=== PATIENT | female | born 1940 | race Caucasian/White ===

== ENCOUNTER 2016-10-24 08:21 | Day surgery (SDC) | payer MEDICARE, BC ==
[2016-10-19 15:36] VITALS: BMI 21.4
[~2016-10-24 08:21] MED LIST: LACTATED RINGERS 1,000 ML IV SCH; LIDOCAINE 1% 20 ML VIAL (10MG/ML) FOR IV START INTRADERMA PRN
[2016-10-24 08:53] VITALS: RESP 16; TEMP 97.8
[2016-10-24] MEDS ORDERED: LIDOCAINE 1% INJ 10MG/ML (20 ML MDV) ONE (09:55)
[2016-10-24] MEDS ORDERED: PROPOFOL 10 MG/ML 20 ML VIAL IV ONE (09:55)
--- NOTE | 2016-10-24 10:10 | P.GSHP ---
History of Present Illness H&P Date: 10/24/16 Chief Complaint: Screening colonoscopy This is a 76-year-old female referred from [facility] first part history. Patient rents today for screening colonoscopy. Her last colonoscopy was 10 years ago. She has history of diverticulitis. - Constitutional Constitutional: Reports as per HPI Past Medical History Past Medical History: COPD, CVA/TIA, GERD/Reflux, Hyperlipidemia, Hypertension, Pneumonia, Thyroid Disorder Additional Past Medical History / Comment(s): TIA 2013- no effects, hx pneumonia , diverticulitis, arthritis, History of Any Multi-Drug Resistant Organisms: None Reported Past Surgical History: Breast Surgery, Orthopedic Surgery Additional Past Surgical History / Comment(s): rt breast lumpectomy, bunionectomy left foot, luis cataracts Past Anesthesia/Blood Transfusion Reactions: No Reported Reaction Past Psychological History: No Psychological Hx Reported Smoking Status: Current every day smoker Past Alcohol Use History: Rare Additional Past Alcohol Use History / Comment(s): smokes 1/2 PPD, has smoked for 40 yrs Past Drug Use History: None Reported - Past Family History Mother Family Medical History: No Reported History Medications and Allergies Home Medications Medication Instructions Recorded Confirmed Type ALPRAZolam [Xanax] 0.5 mg PO TID PRN 10/19/16 10/24/16 History Aspirin [Adult Low Dose Aspirin EC] 81 mg PO DAILY 10/19/16 10/24/16 History Citracal Tab 1 tab PO DAILY 10/19/16 10/24/16 History Ipratropium-Albuterol Nebulize 0 ml INHALATION QID PRN 10/19/16 10/24/16 History [Duoneb 0.5 mg-3 mg/3 ml Soln] Levothyroxine Sodium [Synthroid] 88 mcg PO DAILY 10/19/16 10/24/16 History Mometasone/Formoterol [Dulera 100 2 puff INHALATION BID 10/19/16 10/24/16 History Mcg/5 Mcg Inhaler] Multivitamins, Thera [Multivitamin] 1 tab PO DAILY 10/19/16 10/24/16 History Ramipril 10 mg PO DAILY 10/19/16 10/24/16 History Rosuvastatin [Crestor] 20 mg PO HS 10/19/16 10/24/16 History Allergies Allergy/AdvReac Type Severity Reaction Status Date / Time rofecoxib [From Vioxx] Allergy flu like Verified 10/19/16 15:18 symptoms and abdominal pain tramadol [From Ultram] Allergy flu like Verified 10/19/16 15:18 symptoms Surgical - Exam Vital Signs Temp Pulse Resp BP Pulse Ox 97.8 F 69 16 141/75 96 10/24/16 08:34 10/24/16 08:34 10/24/16 08:34 10/24/16 08:34 10/24/16 08:34 - General well developed, no distress - Eyes PERRL - ENT normal pinna - Neck no masses - Respiratory normal expansion - Cardiovascular Rhythm: regular - Abdomen Abdomen: soft, non tender Assessment and Plan Plan: We'll perform screening colonoscopy.
--- NOTE | 2016-10-24 10:21 | P.OP ---
Date of Procedure: 10/24/16 Preoperative Diagnosis: Screening colonoscopy Postoperative Diagnosis: Severe diverticulosis of sigmoid colon Procedure(s) Performed: Colonoscopy Anesthesia: MAC Surgeon: Andreas Hurtado Pathology: none sent Condition: stable Disposition: PACU Description of Procedure: The patient's placed on the endoscopy table in the lateral position. She received IV sedation. The digital rectal exam was performed which revealed no abnormalities. The flexible colonoscope was then placed patient anus passed throughout the entire colon. The ileocecal valve was visualized. The cecum, ascending and transverse colon appeared normal. In the descending colon just few scattered diverticula. Sigmoid colon there was extensive diverticular changes without evidence of diverticulitis. The scope was then brought back the rectum and this appeared normal. Scope was withdrawn for patient.
[2016-10-24 10:43] VITALS: BP 126/77; PULSE 74
== END 2016-10-24 11:08 | disposition home or self-care (01) ==
LOC: ORWHC2ENDO 08:21
PROVIDERS: ATTEND Surgery
DX: Z12.11 Encounter for screening for malignant neoplasm of colon (principal); K57.30 Diverticulosis of large intestine without perforation or abscess without bleeding; Z87.19 Personal history of other diseases of the digestive system; J44.9 Chronic obstructive pulmonary disease, unspecified; K21.9 Gastro-esophageal reflux disease without esophagitis; E78.5 Hyperlipidemia, unspecified; I10 Essential (primary) hypertension; E07.9 Disorder of thyroid, unspecified; M19.90 Unspecified osteoarthritis, unspecified site; F17.200 Nicotine dependence, unspecified, uncomplicated; Z79.82 Long term (current) use of aspirin; Z79.899 Other long term (current) drug therapy; Z88.8 Allergy status to other drugs, medicaments and biological substances; Z86.73 Personal history of transient ischemic attack (TIA), and cerebral infarction without residual deficits
CPT/HCPCS: J2001; J2704; G0121; 99153

== ENCOUNTER 2020-01-12 08:27 | Inpatient (IN) | payer MEDICARE, BC ==
[2020-01-12] MEDS ORDERED: SODIUM CHLORIDE 0.9% 1,000 ML IV STA (08:31)
[2020-01-12] MEDS ORDERED: IPRATROPIUM-ALBUTEROL 3 ML NEB INHALATION STA ×2 (08:31→09:09)
--- NOTE | 2020-01-12 08:42 | ED ---
SOB HPI - General Stated Complaint: KATHRYN Time Seen by Provider: 01/12/20 08:27 Source: patient, EMS, RN notes reviewed, old records reviewed - History of Present Illness Initial Comments: This is a 79-year-old female history of COPD hypertension and atrial fibrillation who presents with complaints of acid shortness of breath which started yesterday. He progressively worse not improving her home medication. She was brought in by EMS she was given steroids no nebulizer per current protocols. She did not take her medication this more she is found have a blood pressure 220/120 heart rate approximately 130s A. fib RVR. No fevers chills nausea vomiting sweats overt cough he is been self 14 for approximately 2 weeks. MD Complaint: shortness of breath - Related Data Home Medications Medication Instructions Recorded Confirmed ALPRAZolam [Xanax] 0.5 mg PO TID PRN 10/19/16 10/24/16 Aspirin [Adult Low Dose Aspirin EC] 81 mg PO DAILY 10/19/16 10/24/16 Citracal Tab 1 tab PO DAILY 10/19/16 10/24/16 Ipratropium-Albuterol Nebulize 0 ml INHALATION QID PRN 10/19/16 10/24/16 [Duoneb 0.5 mg-3 mg/3 ml Soln] Levothyroxine Sodium [Synthroid] 88 mcg PO DAILY 10/19/16 10/24/16 Mometasone/Formoterol [Dulera 100 2 puff INHALATION BID 10/19/16 10/24/16 Mcg/5 Mcg Inhaler] Multivitamins, Thera [Multivitamin] 1 tab PO DAILY 10/19/16 10/24/16 Ramipril 10 mg PO DAILY 10/19/16 10/24/16 Rosuvastatin [Crestor] 20 mg PO HS 10/19/16 10/24/16 Allergies Allergy/AdvReac Type Severity Reaction Status Date / Time rofecoxib [From Vioxx] Allergy flu like Verified 10/19/16 15:18 symptoms and abdominal pain tramadol [From Ultram] Allergy flu like Verified 10/19/16 15:18 symptoms Review of Systems ROS Statement: Those systems with pertinent positive or pertinent negative responses have been documented in the HPI. ROS Other: All systems not noted in ROS Statement are negative. Past Medical History Past Medical History: COPD, CVA/TIA, GERD/Reflux, Hyperlipidemia, Hypertension, Pneumonia, Thyroid Disorder Additional Past Medical History / Comment(s): TIA 2013- no effects, hx pneumonia, diverticulitis, arthritis, History of Any Multi-Drug Resistant Organisms: None Reported Past Surgical History: Breast Surgery, Orthopedic Surgery Additional Past Surgical History / Comment(s): rt breast lumpectomy, bunionectomy left foot, luis cataracts Past Anesthesia/Blood Transfusion Reactions: No Reported Reaction Past Psychological History: No Psychological Hx Reported Smoking Status: Current every day smoker Past Alcohol Use History: Rare Additional Past Alcohol Use History / Comment(s): smokes 1/2 PPD, has smoked for 40 yrs Past Drug Use History: None Reported - Past Family History Mother Family Medical History: No Reported History General Exam - General Exam Comments Initial Comments: This is a well-developed well-nourished awake alert oriented 3 female who is demonstrating respiratory distress with audible wheezing General appearance: alert, anxious, in distress Head exam: Present: atraumatic, normocephalic, normal inspection Eye exam: Present: normal appearance, PERRL, EOMI. Absent: scleral icterus, conjunctival injection, periorbital swelling ENT exam: Present: mucous membranes dry Neck exam: Present: normal inspection, full ROM, other (No stridor JVD or bruits). Absent: tenderness, meningismus, lymphadenopathy Respiratory exam: Present: wheezes, accessory muscle use, decreased breath sounds. Absent: respiratory distress, rales, rhonchi, stridor Cardiovascular Exam: Present: tachycardia, irregular rhythm. Absent: systolic murmur, diastolic murmur, rubs, gallop, clicks GI/Abdominal exam: Present: soft, normal bowel sounds. Absent: distended, tenderness, guarding, rebound, rigid Extremities exam: Present: normal inspection, full ROM, normal capillary refill. Absent: tenderness, pedal edema, joint swelling, calf tenderness Back exam: Present: normal inspection Neurological exam: Present: alert, oriented X3, CN II-XII intact Psychiatric exam: Present: normal affect, anxious Skin exam: Present: warm, dry, intact, normal color. Absent: rash Course Vital Signs 01/12/20 01/12/20 01/12/20 08:59 09:02 09:05 Temperature 97.6 F Pulse Rate 138 H 134 H 134 H Respiratory 24 24 Rate Blood Pressure 196/130 212/141 O2 Sat by Pulse 98 96 Oximetry 01/12/20 01/12/20 01/12/20 09:10 09:11 09:19 Temperature Pulse Rate 132 H 132 H 126 H Respiratory Rate Blood Pressure O2 Sat by Pulse Oximetry 01/12/20 10:13 Temperature Pulse Rate 108 H Respiratory 24 Rate Blood Pressure 138/100 O2 Sat by Pulse 96 Oximetry - Reevaluation(s) Reevaluation #1: 01/12/20 10:07 After 2 [id number] nebulizers the patient felt somewhat improved her heart rate continues to be elevated. Patient be started on Cardizem drip due to the A. fib RVR. Medical Decision Making - Medical Decision Making I did discuss findings with the patient as well as with Dr. Sears. Patient will be admitted for evaluation of COPD exacerbation as well as A. fib RVR. Patient is improving with respect to her breathing. - Lab Data Result diagrams: 01/12/20 08:45 01/12/20 08:45 Lab Results 01/12/20 01/12/20 01/12/20 Range/Units 08:45 08:45 08:45 WBC 11.0 H (3.8-10.6) k/uL RBC 4.34 (3.80-5.40) m/uL Hgb 14.1 (11.4-16.0) gm/dL Hct 43.3 (34.0-46.0) % MCV 99.8 (80.0-100.0) fL MCH 32.4 (25.0-35.0) pg MCHC 32.4 (31.0-37.0) g/dL RDW 13.1 (11.5-15.5) % Plt Count 317 (150-450) k/uL Neutrophils % 60 % Lymphocytes % 23 % Monocytes % 5 % Eosinophils % 9 % Basophils % 1 % Neutrophils # 6.6 (1.3-7.7) k/uL Lymphocytes # 2.5 (1.0-4.8) k/uL Monocytes # 0.5 (0-1.0) k/uL Eosinophils # 1.0 H (0-0.7) k/uL Basophils # 0.1 (0-0.2) k/uL PT (9.0-12.0) sec INR (<1.2) APTT (22.0-30.0) sec Sodium 140 (137-145) mmol/L Potassium 4.8 (3.5-5.1) mmol/L Chloride 106 (98-107) mmol/L Carbon Dioxide 25 (22-30) mmol/L Anion Gap 9 mmol/L BUN 21 H (7-17) mg/dL Creatinine 0.92 (0.52-1.04) mg/dL Est GFR (CKD-EPI)AfAm 69 (>60 ml/min/1.73 sqM) Est GFR (CKD-EPI)NonAf 60 (>60 ml/min/1.73 sqM) Glucose 169 H (74-99) mg/dL Plasma Lactic Acid Waldo 0.8 (0.7-2.0) mmol/L Calcium 9.4 (8.4-10.2) mg/dL Magnesium 2.0 (1.6-2.3) mg/dL Total Bilirubin 0.4 (0.2-1.3) mg/dL AST 26 (14-36) U/L ALT 20 (4-34) U/L Alkaline Phosphatase 117 (38-126) U/L Creatine Kinase 93 (30-135) U/L Troponin I (0.000-0.034) ng/mL NT-Pro-B Natriuret Pep pg/mL Total Protein 8.3 H (6.3-8.2) g/dL Albumin 4.7 (3.5-5.0) g/dL 01/12/20 01/12/20 01/12/20 Range/Units 08:45 08:45 09:30 WBC (3.8-10.6) k/uL RBC (3.80-5.40) m/uL Hgb (11.4-16.0) gm/dL Hct (34.0-46.0) % MCV (80.0-100.0) fL MCH (25.0-35.0) pg MCHC (31.0-37.0) g/dL RDW (11.5-15.5) % Plt Count (150-450) k/uL Neutrophils % % Lymphocytes % % Monocytes % % Eosinophils % % Basophils % % Neutrophils # (1.3-7.7) k/uL Lymphocytes # (1.0-4.8) k/uL Monocytes # (0-1.0) k/uL Eosinophils # (0-0.7) k/uL Basophils # (0-0.2) k/uL PT 9.4 (9.0-12.0) sec INR 0.9 (<1.2) APTT 19.9 L (22.0-30.0) sec Sodium (137-145) mmol/L Potassium (3.5-5.1) mmol/L Chloride (98-107) mmol/L Carbon Dioxide (22-30) mmol/L Anion Gap mmol/L BUN (7-17) mg/dL Creatinine (0.52-1.04) mg/dL Est GFR (CKD-EPI)AfAm (>60 ml/min/1.73 sqM) Est GFR (CKD-EPI)NonAf (>60 ml/min/1.73 sqM) Glucose (74-99) mg/dL Plasma Lactic Acid Waldo (0.7-2.0) mmol/L Calcium (8.4-10.2) mg/dL Magnesium (1.6-2.3) mg/dL Total Bilirubin (0.2-1.3) mg/dL AST (14-36) U/L ALT (4-34) U/L Alkaline Phosphatase (38-126) U/L Creatine Kinase (30-135) U/L Troponin I <0.012 (0.000-0.034) ng/mL NT-Pro-B Natriuret Pep 202 pg/mL Total Protein (6.3-8.2) g/dL Albumin (3.5-5.0) g/dL - EKG Data -: EKG Interpreted by Me EKG Comments: A. fib with RVR and rate 137. Interval 118 QRS duration 6 QT/QTC 3:30/498 indeterminate axis pulmonary disease pattern nonspecific ST-T wave configuration - Radiology Data Radiology results: report reviewed (I did on the imaging and report the imaging is consistent with COPD.), image reviewed Critical Care Time Critical Care Time: Yes Critical Care Time: Critical care time: 39 minutes of critical care time which includes initial presentation with history physical discussed with paramedics on arrival multiple reevaluation the patient to responsive therapy review of old charting was available discussed with the admitting physician admission orders and documentation of the above. Disposition Clinical Impression: Acute exacerbation of chronic obstructive pulmonary disease, Acute respiratory distress syndrome in adult, Rapid atrial fibrillation Disposition: ADMITTED IP TO THIS HOSP Condition: Fair Referrals: Cari Pisano DO [Primary Care Provider] - 1-2 days
[2020-01-12 09:00] LABS: Basophils # (A) 0.1 k/uL (0-0.2); Basophils % (A) 1 %; Eosinophils % (A) 9 %; HCT 43.3 % (34.0-46.0); HGB 14.1 gm/dL (11.4-16.0); Lymphocytes # (A) 2.5 k/uL (1.0-4.8); Lymphocytes % (A) 23 %; MCH 32.4 pg (25.0-35.0); MCHC 32.4 g/dL (31.0-37.0); MCV 99.8 fL (80.0-100.0); Mean Platelet Volume 7.2; Monocytes # (A) 0.5 k/uL (0-1.0); Monocytes % (A) 5 %; Neutrophils # (A) 6.6 k/uL (1.3-7.7); Neutrophils % (A) 60 %; Platelet Count 317 k/uL (150-450); RBC 4.34 m/uL (3.80-5.40); RDW 13.1 % (11.5-15.5)
[2020-01-12 09:10] LABS: Albumin 4.7 g/dL (3.5-5.0); Calcium 9.4 mg/dL (8.4-10.2); Potassium 4.8 mmol/L (3.5-5.1); Total Bilirubin 0.4 mg/dL (0.2-1.3); Total Protein 8.3 g/dL (6.3-8.2)
[2020-01-12] MEDS ORDERED: MAGNESIUM SULFATE-D5W PMX 1 GM in DEXTROSE/WATER 1 100ML.BAG IVPB ONE (09:10)
--- NOTE | 2020-01-12 09:12 | XR ---
EXAMINATION TYPE: XR chest 1V DATE OF EXAM: 01/12/2020 COMPARISON: NONE HISTORY: 79-year-old female from September, difficulty breathing TECHNIQUE: Single frontal view of the chest is obtained. FINDINGS: Heart normal size. Tortuous/ectatic thoracic aorta. Mild diffuse interstitial prominence. Hazy left basilar opacity likely relating to overlying soft tissue. Hyperinflation. No lizeth consolid ation or pleural effusion. IMPRESSION: COPD and chronic appearing changes. No definite acute process.
[2020-01-12] MEDS ORDERED: DILTIAZEM DRIP BOLUS FROM BAG 1 MG SOLN IV ONE (09:51)
[2020-01-12] MEDS ORDERED: DILTIAZEM 125 MG in SODIUM CHLORIDE 0.9% 100 ML IV SCH (10:00)
[2020-01-12 10:15] LABS: INR 0.9 (<1.2); Prothrombin Time 9.4 sec (9.0-12.0)
[2020-01-12 10:21] LABS: Partial Thromboplastin Time 19.9 sec (22.0-30.0)
[2020-01-12] MEDS ORDERED: HEPARIN SODIUM,PORCINE 5,000 UNIT/ML 1 ML VIAL IV ONE (11:02)
[2020-01-12] MEDS ORDERED: HEPARIN SODIUM,PORCINE 5,000 UNIT/ML 1 ML VIAL IV PRN (11:02)
[2020-01-12] MEDS ORDERED: HEPARIN SOD,PORK IN 0.45% NACL 25,000 UNIT in 0.45% NACL 1 250ML.BAG IV SCH (11:15)
[2020-01-12] MEDS: ALBUTEROL INHALER 60 PUFF/8 GM INHALER (BULK) INHALATION SCH ×3 (11:51→19:21)
[2020-01-12] MEDS ORDERED: IPRATROPIUM-ALBUTEROL 3 ML NEB INHALATION SCH (12:00)
[2020-01-12] MEDS: ALPRAZolam 0.5 MG TAB PO PRN (12:02)
[2020-01-12] MEDS: methylPREDNISolone SOD SUCCI 125 MG/2 ML VIAL IV SCH ×3 (12:03→22:59)
[2020-01-12 12:14] LABS: Glucose,Whole Blood 130 mg/dL (75-99)
--- NOTE | 2020-01-12 13:58 | P.CRDCN ---
History of Present Illness Consult date: 01/12/20 Requesting physician: Senia Alvarez Consult reason: shortness of breath Chief complaint: Shortness of breath History of present illness: This is a 79-year-old female with history of COPD, nicotine dependence, prior TIA, anxiety, who presents to the hospital with symptoms of greater than one week progression of shortness of breath. Patient states that she noticed her shortness of breath about a week ago and since then every days been progressively worse to the point where she could not breathe at all. She also states that she feels as though she's been running some mild fevers at home and has a wheezy cough. Initially a cardiology consultation was requested for atrial fibrillation, but on review of the patient's EKG, she came in with a sinus tachycardia, and continues to be in sinus tachycardia at the time of my examination. She is currently on IV Cardizem at 5. Chest x-ray showed COPD with chronic appearing changes. Blood pressure on arrival to the hospital 196/1 30 with a heart rate in the 120 to 1:30 range, O2 saturation 98% on blow-by device. Patient is currently afebrile. Laboratory data was reviewed, white blood cell count 11.0, hemoglobin 14.1, platelet count 317. Sodium 140, potassium 4.8, BUN 21 and creatinine 0.9, troponin 0.012. At the time of my examination, patient was quite short of breath, had to sit straight up in bed to breathe. Continues to have an intermittent tight wheezy cough. Past Medical History Past Medical History: Atrial Fibrillation, COPD, CVA/TIA, GERD/Reflux, Hyperlipidemia, Hypertension, Osteoarthritis (OA), Pneumonia, Thyroid Disorder Additional Past Medical History / Comment(s): TIA in 2013, diverticular disease, hypothyroid, arthritis in multiple joints, sinus problems History of Any Multi-Drug Resistant Organisms: None Reported Past Surgical History: Breast Surgery, Orthopedic Surgery Additional Past Surgical History / Comment(s): Benign rt breast lumpectomy, bunionectomy left foot, colonoscopies, luis cataracts Past Anesthesia/Blood Transfusion Reactions: Postoperative Nausea & Vomiting (PONV) Smoking Status: Former smoker - Past Family History Mother Family Medical History: Diabetes Mellitus Additional Family Medical History / Comment(s): Mother had heart problems. Father Family Medical History: No Reported History Additional Family Medical History / Comment(s): Father was healthy and lived to be 98yrs old. Medications and Allergies Home Medications Medication Instructions Recorded Confirmed Type ALPRAZolam [Xanax] 0.5 mg PO TID PRN 10/19/16 01/12/20 History Aspirin [Adult Low Dose Aspirin EC] 81 mg PO DAILY 10/19/16 01/12/20 History Ipratropium-Albuterol Nebulize 3 ml INHALATION RT-QID PRN 10/19/16 01/12/20 History [Duoneb 0.5 mg-3 mg/3 ml Soln] Levothyroxine Sodium [Synthroid] 88 mcg PO DAILY 10/19/16 01/12/20 History Multivitamins, Thera [Multivitamin] 1 tab PO DAILY 10/19/16 01/12/20 History Ramipril 10 mg PO DAILY 10/19/16 01/12/20 History Rosuvastatin [Crestor] 20 mg PO HS 10/19/16 01/12/20 History Albuterol Sulfate [Ventolin HFA] 2 puff INHALATION RT-Q4H PRN 01/12/20 01/12/20 History Biotin 5,000 mcg PO DAILY 01/12/20 01/12/20 History Citracal/Vit D 200-250 1 tab PO DAILY 01/12/20 01/12/20 History Cyclobenzaprine [Flexeril] 5 - 10 mg PO BID PRN 01/12/20 01/12/20 History Dicyclomine [Bentyl] 10 mg PO TID PRN 01/12/20 01/12/20 History Meloxicam [Mobic] 7.5 - 15 mg PO DAILY 01/12/20 01/12/20 History Allergies Allergy/AdvReac Type Severity Reaction Status Date / Time rofecoxib [From Vioxx] Allergy flu like Verified 10/19/16 15:18 symptoms and abdominal pain tramadol [From Ultram] Allergy flu like Verified 10/19/16 15:18 symptoms Physical Exam Vitals: Vital Signs Temp Pulse Resp BP Pulse Ox 01/12/20 10:52 30 H 01/12/20 10:50 115 H 18 149/77 97 01/12/20 10:30 107 H 24 138/73 98 01/12/20 10:13 108 H 24 138/100 96 01/12/20 10:00 123 H 24 98 01/12/20 09:30 144 H 27 H 170/101 97 01/12/20 09:19 126 H 01/12/20 09:11 132 H 01/12/20 09:10 132 H 01/12/20 09:05 134 H 01/12/20 09:02 134 H 24 212/141 96 01/12/20 09:00 130 H 25 H 196/130 97 01/12/20 08:59 97.6 F 138 H 24 196/130 98 01/12/20 08:33 121 H 97 Intake and Output 01/11/20 01/12/20 01/12/20 22:59 06:59 14:59 Other: Weight 70.307 kg PHYSICAL EXAMINATION: GENERAL: 79-year-old female in mild respiratory distress at the time of my examination HEENT: Head is atraumatic, normocephalic. Pupils equal, round. Sclera an icteric. Conjunctiva are clear. Mucous membranes of the mouth are moist. Neck is supple. There is no elevated jugular venous pressure. No carotid bruit is heard. HEART EXAMINATION: Heart S1, S2 tachycardic . No murmur or gallop heard. CHEST EXAMINATION: On's reveal decreased air exchange with wheezing throughout. ABDOMEN: Soft, nontender. Bowel sounds are heard. No organomegaly noted. EXTREMITIES: 2+ peripheral pulses with no evidence of peripheral edema and no calf tenderness noted. NEUROLOGIC patient is awake, alert and oriented 3 . Results 01/12/20 08:45 01/12/20 08:45 Cardiac Enzymes 01/12/20 01/12/20 Range/Units 08:45 08:45 AST 26 (14-36) U/L Troponin I <0.012 (0.000-0.034) ng/mL Coagulation 01/12/20 Range/Units 09:30 PT 9.4 (9.0-12.0) sec APTT 19.9 L (22.0-30.0) sec CBC 01/12/20 Range/Units 08:45 WBC 11.0 H (3.8-10.6) k/uL RBC 4.34 (3.80-5.40) m/uL Hgb 14.1 (11.4-16.0) gm/dL Hct 43.3 (34.0-46.0) % Plt Count 317 (150-450) k/uL Comprehensive Metabolic Panel 01/12/20 Range/Units 08:45 Sodium 140 (137-145) mmol/L Potassium 4.8 (3.5-5.1) mmol/L Chloride 106 (98-107) mmol/L Carbon Dioxide 25 (22-30) mmol/L BUN 21 H (7-17) mg/dL Creatinine 0.92 (0.52-1.04) mg/dL Glucose 169 H (74-99) mg/dL Calcium 9.4 (8.4-10.2) mg/dL AST 26 (14-36) U/L ALT 20 (4-34) U/L Alkaline Phosphatase 117 (38-126) U/L Total Protein 8.3 H (6.3-8.2) g/dL Albumin 4.7 (3.5-5.0) g/dL Current Medications Generic Name Dose Route Start Last Admin Trade Name Freq PRN Reason Stop Dose Admin Albuterol Sulfate 2 puff 01/12/20 12:00 01/12/20 11:51 Ventolin Hfa Inhaler INHALATION 2 puff RT-Q4H [facility] Administration Alprazolam 0.5 mg 01/12/20 10:29 01/12/20 12:02 Xanax PO 0.5 mg TID PRN Administration Anxiety Aspirin 81 mg 01/13/20 09:00 Aspirin PO DAILY [facility] Atorvastatin Calcium 40 mg 01/12/20 21:00 Lipitor PO HS [facility] Budesonide/Formoterol Fumarate 2 puff 01/12/20 20:00 Symbicort 80-4.5 Mcg Inhaler INHALATION RT-BID [facility] Heparin Sodium (Porcine) 0 unit 01/12/20 11:02 Heparin IV PER PROTOCOL PRN Low PTT Protocol Sodium Chloride 1,000 mls @ 130 mls/hr 01/12/20 08:31 01/12/20 08:54 Saline 0.9% IV 01/12/20 16:12 130 mls/hr .Q7H42M STA Administration Diltiazem HCl 125 mg/ Sodium 125 mls @ 5 mls/hr 01/12/20 10:00 01/12/20 10:05 Chloride IV 5 mg/hr .Q24H [facility] 5 mls/hr Administration 5 MG/HR Heparin Sodium/Sodium Chloride 250 mls @ 8.437 mls/hr 01/12/20 11:15 01/12/20 12:04 25,000 unit/ Sodium Chloride IV 12 units/kg/hr .Q24H [facility] 8.437 mls/hr Administration Protocol 12 UNITS/KG/HR Levothyroxine Sodium 88 mcg 01/13/20 06:30 Synthroid PO DAILY@0630 [facility] Lisinopril 40 mg 01/13/20 09:00 Zestril PO DAILY [facility] Methylprednisolone Sodium Succinate 60 mg 01/12/20 12:00 01/12/20 12:03 Solu-Medrol IV 60 mg Q6HR [facility] Administration Multivitamins 1 each 01/13/20 09:00 Theragran PO DAILY [facility] Tiotropium [place] 1 puff 01/13/20 08:00 Spiriva INHALATION RT-DAILY [facility] Intake and Output 01/11/20 01/12/20 01/12/20 22:59 06:59 14:59 Other: Weight 70.307 kg Patient Weight 01/13/20 06:59 Weight 70.307 kg 01/12/20 08:45 01/12/20 08:45 EKG Interpretations (text) EKG shows a sinus tachycardia Assessment and Plan Plan: Assessment and plan #1 symptoms of one week to 10 day duration of progressively worsening shortness of breath with associated mild fever and wheezy cough. Rule out possible COVID 19. Versus a possible COPD exacerbation. Initial chest x-ray did not reveal any acute findings. #2 sinus tachycardia, likely secondary to respiratory difficulty #3 COPD #4 nicotine dependence #5 prior TIA #6 anxiety Plan We will obtain an echocardiogram with Doppler study. The primary care doctor is also obtaining testing for possible Covid 19, we will obtain a pro calcitonin level. Consult pulmonary per primary doctor request. Order a d-dimer. Further recommendations to follow. DNP note has been reviewed, I agree with a documented findings and plan of care. Patient was seen and examined.
--- NOTE | 2020-01-12 15:23 | CT ---
EXAMINATION TYPE: CT angio chest DATE OF EXAM: 01/12/2020 COMPARISON: None HISTORY: Difficulty breathing. CT DLP: 258.6 mGycm CONTRAST: CT chest with contrast and 3D reconstruction with MIP imaging is performed with IV Contrast, patient injected with 63ml mL of Isovue 370. Contrast-enhanced CT of the chest was performed through the course of the pulmonary arteries with vilma g and mediastinal window settings submitted. 3D reconstruction with MIP imaging was also performed. PULMONARY ARTERIES: The pulmonary arteries and their major tributaries are patent. I do not see yulisa dence for sizable filling defect to suggest pulmonary embolic process. LUNGS: Small focal groundglass infiltrate adjacent to the right cardiac border image 93./Linear atele ctasis in the region of the lingula. Mild bronchial wall thickening identified. Mild emphysematous ch anges noted. Right apical parenchymal scarring. No pulmonary nodule or mass is detected. No pleural effusion. MEDIASTINUM: Ectasia of the thoracic aorta with atheromatous change noted. Correlate clinically . The heart is mildly enlarged. No evidence for mediastinal mass. No mediastinal lymph nodes greater bandar n 1cm. HILAR STRUCTURES: No evidence for mass. No hilar lymph nodes greater than 1 cm. UPPER ABDOMEN: No significant abnormality is seen. IMPRESSION: 1. No evidence for Pulmonary embolism at this time. 2. Linear atelectasis in the region of the lingula. Bronchial wall thickening may reflect bronchitis. Small focal groundglass infiltrate adjacent to the right cardiac border image 93.
[2020-01-12] MEDS ORDERED: Acetaminophen-Codeine 300-30mg TAB PO PRN (15:40)
[2020-01-12] MEDS: ACETAMINOPHEN TAB 325 MG TAB PO PRN (16:17)
[2020-01-12 16:55] LABS: Glucose,Whole Blood 167 mg/dL (75-99)
[2020-01-12] MEDS: INSULIN ASPART (NovoLOG) 100 UNIT/ML VIAL SQ SCH ×2 (17:10→21:41)
--- NOTE | 2020-01-12 17:26 | P.CNPUL ---
History of Present Illness Consult date: 01/12/20 Reason for consult: dyspnea, COPD Chief complaint: Shortness of breath History of present illness: 79-year-old white female patient of Dr. Smith, with past medical history of COPD, hypertension, chronic atrial fibrillation, previous history of CVA/TIA, hypothyroidism, current every day smoker, smokes half a pack a day for the past 40 years, who presented to the emergency department per EMS on 01/12/2020, for evaluation of increasing shortness of breath that started yesterday. patient did have fevers at home. She states she has been at home under stable home order since December 21. She does have family members that tested positive for Covid 19 however they have been and self-isolation and have not had any contact with the patient says before December 21. She states she called her [id number] who did test positive for Covid 19 this morning to transport her to the hospital however upon further thought she changed her mind and called the ambulance. Patient had not taken her usual medications this morning, her blood pressure on arrival was 220/120, she was in A. fib RVR with a rate of 1:30 BPM, she denies any fevers, denies any nausea vomiting, denies any diaphoresis, no chest pain. Patient was bronchospastic, dyspneic, with audible wheezing. EKG showed A. fib RVR, with nonspecific ST-T wave configuration. Chest x-ray showed COPD, chronic appearing changes, and no definite acute process. Lab work has been reviewed showing white blood cell count 11.0, 11 of 14.1, coagulation profile was within normal limits, d-dimer was not checked yet, a lecture lites are within normal limits, BUN is 21 creatinine 0.92, lactic acid is 0.8, LFTs were within normal limits, troponin was less than 0.012, proBNP was within normal limits at 202, influenza screen was negative. COVID 19 testing has been ordered in in progress, pro- calcitonin this pending, d-dimer has been ordered, cardiology has evaluated the patient, determined that patient was in sinus tachycardia, nevertheless patient was started on heparin infusion for anticoagulation. Review of Systems All systems: negative Constitutional: Denies chills, Denies fever Eyes: denies blurred vision, denies pain Ears, nose, mouth and throat: Denies headache, Denies sore throat Cardiovascular: Denies chest pain, Denies shortness of breath Respiratory: Reports dyspnea, Denies cough Gastrointestinal: Denies abdominal pain, Denies diarrhea, Denies nausea, Denies vomiting Genitourinary: Denies dysuria, Denies hematuria Musculoskeletal: Denies myalgias Integumentary: Denies pruritus, Denies rash Neurological: Denies numbness, Denies weakness Psychiatric: Denies anxiety, Denies depression Endocrine: Denies fatigue, Denies weight change Past Medical History Past Medical History: Atrial Fibrillation, COPD, CVA/TIA, GERD/Reflux, Hyperlipidemia, Hypertension, Osteoarthritis (OA), Pneumonia, Thyroid Disorder Additional Past Medical History / Comment(s): TIA in 2013, diverticular disease, hypothyroid, arthritis in multiple joints, sinus problems History of Any Multi-Drug Resistant Organisms: None Reported Past Surgical History: Breast Surgery, Orthopedic Surgery Additional Past Surgical History / Comment(s): Benign rt breast lumpectomy, bunionectomy left foot, colonoscopies, luis cataracts Past Anesthesia/Blood Transfusion Reactions: Postoperative Nausea & Vomiting (PONV) Smoking Status: Former smoker - Past Family History Mother Family Medical History: Diabetes Mellitus Additional Family Medical History / Comment(s): Mother had heart problems. Father Family Medical History: No Reported History Additional Family Medical History / Comment(s): Father was healthy and lived to be 98yrs old. Medications and Allergies Home Medications Medication Instructions Recorded Confirmed Type ALPRAZolam [Xanax] 0.5 mg PO TID PRN 10/19/16 01/12/20 History Aspirin [Adult Low Dose Aspirin EC] 81 mg PO DAILY 10/19/16 01/12/20 History Ipratropium-Albuterol Nebulize 3 ml INHALATION RT-QID PRN 10/19/16 01/12/20 History [Duoneb 0.5 mg-3 mg/3 ml Soln] Levothyroxine Sodium [Synthroid] 88 mcg PO DAILY 10/19/16 01/12/20 History Multivitamins, Thera [Multivitamin] 1 tab PO DAILY 10/19/16 01/12/20 History Ramipril 10 mg PO DAILY 10/19/16 01/12/20 History Rosuvastatin [Crestor] 20 mg PO HS 10/19/16 01/12/20 History Albuterol Sulfate [Ventolin HFA] 2 puff INHALATION RT-Q4H PRN 01/12/20 01/12/20 History Biotin 5,000 mcg PO DAILY 01/12/20 01/12/20 History Citracal/Vit D 200-250 1 tab PO DAILY 01/12/20 01/12/20 History Cyclobenzaprine [Flexeril] 5 - 10 mg PO BID PRN 01/12/20 01/12/20 History Dicyclomine [Bentyl] 10 mg PO TID PRN 01/12/20 01/12/20 History Meloxicam [Mobic] 7.5 - 15 mg PO DAILY 01/12/20 01/12/20 History Allergies Allergy/AdvReac Type Severity Reaction Status Date / Time rofecoxib [From Vioxx] Allergy flu like Verified 10/19/16 15:18 symptoms and abdominal pain tramadol [From Ultram] Allergy flu like Verified 10/19/16 15:18 symptoms Physical Exam Vitals: Vital Signs Temp Pulse Resp BP Pulse Ox 01/12/20 10:52 30 H 01/12/20 10:50 115 H 18 149/77 97 01/12/20 10:30 107 H 24 138/73 98 01/12/20 10:13 108 H 24 138/100 96 01/12/20 10:00 123 H 24 98 01/12/20 09:30 144 H 27 H 170/101 97 01/12/20 09:19 126 H 01/12/20 09:11 132 H 01/12/20 09:10 132 H 01/12/20 09:05 134 H 01/12/20 09:02 134 H 24 212/141 96 01/12/20 09:00 130 H 25 H 196/130 97 01/12/20 08:59 97.6 F 138 H 24 196/130 98 01/12/20 08:33 121 H 97 Intake and Output 01/11/20 01/12/20 01/12/20 22:59 06:59 14:59 Intake Total 237 Balance 237 Intake: Oral 237 Other: # Voids 1 Weight 70.307 kg GENERAL EXAM: Alert, very pleasant, 71-year-old white female, on 3 L of oxygen with a pulse ox of 97%, dyspneic with conversation, HEAD: Normocephalic/atraumatic. EYES: Normal reaction of pupils, equal size. Conjunctiva pink, sclera white. NOSE: Clear with pink turbinates. THROAT: No erythema or exudates. NECK: No masses, no JVD, no thyroid enlargement, no adenopathy. CHEST: No chest wall deformity. Symmetrical expansion. LUNGS: Equal air entry with diminished breath sounds bilaterally, no rhonchi, no wheezing. CVS: Regular rate and rhythm, normal S1 and S2, no gallops, no murmurs, no rubs ABDOMEN: Soft, nontender. No hepatosplenomegaly, normal bowel sounds, no guarding or rigidity. EXTREMITIES: No clubbing, no edema, no cyanosis, 2+ pulses and upper and lower extremities. MUSCULOSKELETAL: Muscle strength and tone normal. SPINE: No scoliosis or deformity SKIN: a large draining boil noted on upper back, draining purulent drainage CENTRAL NERVOUS SYSTEM: Alert and oriented -3. No focal deficits, tone is normal in all 4 extremities. PSYCHIATRIC: Alert and oriented -3. Appropriate affect. Intact judgment and insight. Results - Laboratory Findings CBC and BMP: 01/12/20 08:45 01/12/20 08:45 PT/INR, D-dimer PT 9.4 sec (9.0-12.0) 01/12/20 09:30 INR 0.9 (<1.2) 01/12/20 09:30 Abnormal lab findings: Abnormal Labs 01/12/20 01/12/20 01/12/20 08:45 08:45 09:30 WBC 11.0 H Eosinophils # 1.0 H APTT 19.9 L BUN 21 H Glucose 169 H POC Glucose (mg/dL) Total Protein 8.3 H 01/12/20 12:09 WBC Eosinophils # APTT BUN Glucose POC Glucose (mg/dL) 130 H Total Protein - Diagnostic Findings Chest x-ray: report reviewed, image reviewed Additional studies: EKG reviewed Assessment and Plan Plan: Assessment: #1. Acute hypoxic rest or a failure related to acute exacerbation of COPD, with the possibility of Covid 19 infection, patient has been tested and the results are pending at this time. Reports some fevers and cough, shortness of breath at home #2. A. fib with RVR on presentation, patient has been evaluated by cardiology, and it was determined the patient was in sinus tachycardia, currently on Cardizem drip and heparin for anticoagulation #3. Chronic obstructive pulmonary disease #4. Hypertensive urgency on presentation improved. Chest x-ray did not show any definite evidence of edema #5. Previous history of CVA/TIA #6. Anxiety #7. Chronic and ongoing nicotine dependence, smoked for 40 years half a pack a day #8. Osteoarthritis #9. Hypothyroidism #10. Diverticular disease #11. Large draining boil on upper back, and surgery will be consulted. Plan: Continue IV steroids, MDI inhalers, chest x-ray has been reviewed with no definite evidence of pneumonia or fluid overload. D-dimer has been ordered and is pending, Covid 19 testing is pending, we'll start the patient on Zithromax. a large draining boil was noted on patient's upper back, with purulent drainage, general surgery will be consulted for possibility of incision and drainage, Unasyn will be added on. Blood pressure is better controlled. CTA chest has been ordered by cardiology and is pending at this time, we'll continue to closely monitor, and follow the clinical course, further recommendations to follow maintain droplet precautions I performed a history & physical examination of the patient and discussed their management with my nurse practitioner, Chery Bell. I reviewed the nurse practitioner's note and agree with the documented findings and plan of care. Lung sounds are positive for diffuse wheezes throughout the lung stinson. The findings and the impression was discussed with the patient. I attest to the documentation by the nurse practitioner. Time with Patient: Greater than 30
[2020-01-12] MEDS: AZITHROMYCIN 500 MG TAB PO SCH (18:12)
[2020-01-12] MEDS: AMPICILLIN-SULBACTAM 3 GM in SODIUM CHLORIDE 0.9% 100 ML IVPB SCH ×2 (18:13→22:59)
[2020-01-12] MEDS: SYMBICORT 80-4.5 MCG INHALER INHALATION SCH (19:22)
[2020-01-12] MEDS: ATORVASTATIN 40 MG TAB PO SCH ×2 (20:29→20:43)
[2020-01-12 21:04] LABS: Glucose,Whole Blood 181 mg/dL (75-99)
--- NOTE | 2020-01-12 23:47 | P.HPIM ---
History of Present Illness H&P Date: 01/12/20 Chief Complaint: Shortness of breath Patient is a 79-year-old female with known history of COPD, previous history of smoking, history of TIA/CVA, hypertension, hyperlipidemia, osteoarthritis and anxiety and questionable history of atrial fibrillation currently not on any ant icoagulation at home came to ER with the complaints of shortness of breath which is getting worse since yesterday. Patient says that she's been having cough for the past 2 weeks and subjective fevers at home. Patient also did not take her medications today morning. Her blood pressure was elevated with SBP greater than 220 on admission. Patient was also tachycardic and tachypneic and also hypoxic on admission. Patient was febrile in the hospital. Denied any nausea vomiting or diarrhea or abdominal pain. No complaints of chest pain. Patient does have headache but no dizziness or lightheadedness. Denied any sick contacts or recent travel. EKG showed atrial fibrillation with rapid ventricular rate on admission and was started on Cardizem drip and heparin drip. Chest x-ray showed COPD with chronic appearing changes. Laboratory data showed pelvis 11.0, hemoglobin 14.1, platelets 317, sodium 140, potassium 4.8, BUN 21 and creatinine 0.9 and troponin 0.012 Patient was seen by cardiology. After reviewing EKG, patient was found to be in sinus tachycardia on admission. D-dimer was ordered. Review of Systems Constitutional: Objective fevers. No chills . Generalized weakness and malaise. Abdomen: Patient denied nausea vomiting and diarrhea and abdominal pain. Cardiovascular: Patient denies any chest pain . Positive short of breath no palpitations. Respiratory: Cough without sputum production and shortness of breath Neurologic: Patient denied any numbness or tingling headache. Musculoskeletal: Patient denies any complaints of joint swelling or deformity. Skin: Negative Psychiatric: Negative Endocrine: No heat or cold intolerance. No recent weight gain. Genitourinary: No dysuria or hematuria. All other 14 point ROS negative except the above Past Medical History Past Medical History: Atrial Fibrillation, COPD, CVA/TIA, GERD/Reflux, Hyperlipidemia, Hypertension, Osteoarthritis (OA), Pneumonia, Thyroid Disorder Additional Past Medical History / Comment(s): TIA in 2014, diverticular disease, hypothyroid, arthritis in multiple joints, sinus problems History of Any Multi-Drug Resistant Organisms: None Reported Past Surgical History: Breast Surgery, Orthopedic Surgery Additional Past Surgical History / Comment(s): Benign rt breast lumpectomy, bunionectomy left foot, colonoscopies, luis cataracts Past Anesthesia/Blood Transfusion Reactions: Postoperative Nausea & Vomiting (PONV) Smoking Status: Former smoker - Past Family History Mother Family Medical History: Diabetes Mellitus Additional Family Medical History / Comment(s): Mother had heart problems. Father Family Medical History: No Reported History Additional Family Medical History / Comment(s): Father was healthy and lived to be 98yrs old. Medications and Allergies Home Medications Medication Instructions Recorded Confirmed Type ALPRAZolam [Xanax] 0.5 mg PO TID PRN 10/19/16 01/12/20 History Aspirin [Adult Low Dose Aspirin EC] 81 mg PO DAILY 10/19/16 01/12/20 History Ipratropium-Albuterol Nebulize 3 ml INHALATION RT-QID PRN 10/19/16 01/12/20 History [Duoneb 0.5 mg-3 mg/3 ml Soln] Levothyroxine Sodium [Synthroid] 88 mcg PO DAILY 10/19/16 01/12/20 History Multivitamins, Thera [Multivitamin] 1 tab PO DAILY 10/19/16 01/12/20 History Ramipril 10 mg PO DAILY 10/19/16 01/12/20 History Rosuvastatin [Crestor] 20 mg PO HS 10/19/16 01/12/20 History Albuterol Sulfate [Ventolin HFA] 2 puff INHALATION RT-Q4H PRN 01/12/20 01/12/20 History Biotin 5,000 mcg PO DAILY 01/12/20 01/12/20 History Citracal/Vit D 200-250 1 tab PO DAILY 01/12/20 01/12/20 History Cyclobenzaprine [Flexeril] 5 - 10 mg PO BID PRN 01/12/20 01/12/20 History Dicyclomine [Bentyl] 10 mg PO TID PRN 01/12/20 01/12/20 History Meloxicam [Mobic] 7.5 - 15 mg PO DAILY 01/12/20 01/12/20 History Allergies Allergy/AdvReac Type Severity Reaction Status Date / Time rofecoxib [From Vioxx] Allergy flu like Verified 10/19/16 15:18 symptoms and abdominal pain tramadol [From Ultram] Allergy flu like Verified 10/19/16 15:18 symptoms Physical Exam Vitals: Vital Signs Temp Pulse Resp BP Pulse Ox 01/12/20 10:52 30 H 01/12/20 10:50 115 H 18 149/77 97 01/12/20 10:30 107 H 24 138/73 98 01/12/20 10:13 108 H 24 138/100 96 01/12/20 10:00 123 H 24 98 01/12/20 09:30 144 H 27 H 170/101 97 01/12/20 09:19 126 H 01/12/20 09:11 132 H 01/12/20 09:10 132 H 01/12/20 09:05 134 H 01/12/20 09:02 134 H 24 212/141 96 01/12/20 09:00 130 H 25 H 196/130 97 01/12/20 08:59 97.6 F 138 H 24 196/130 98 01/12/20 08:33 121 H 97 Intake and Output 01/11/20 01/12/20 01/12/20 22:59 06:59 14:59 Other: Weight 70.307 kg PHYSICAL EXAMINATION: Patient is lying in the bed comfortably, mild distress, awake alert and oriented.. HEENT: Normocephalic. Neck is supple. Pupils reactive. Nostrils clear. Oral cavity is moist. Ears reveal no drainage. Neck reveals no JVD, carotid bruits, or thyromegaly. CHEST EXAMINATION: Trachea is central. Symmetrical expansion. Bilateral diminished air entry and wheezing present. CARDIAC: Normal S1, S2 with no gallops. No murmurs , tachycardic. ABDOMEN: Soft. Bowel sounds normal. No organomegaly. No abdominal bruits. Extremities: reveal no edema. No clubbing or cyanosis Neurologically awake, alert, oriented x3 with well-coordinated movements. No focal deficits noted Skin: No rash or skin lesions. Psychiatric: Coperative. Nonsuicidal Musculoskeletal: No joint swelling or deformity. Normal range of motion. Results CBC & Chem 7: 01/12/20 08:45 01/12/20 08:45 Labs: Abnormal Lab Results - Last 24 Hours (Table) 01/12/20 01/12/20 01/12/20 Range/Units 08:45 08:45 09:30 WBC 11.0 H (3.8-10.6) k/uL Eosinophils # 1.0 H (0-0.7) k/uL APTT 19.9 L (22.0-30.0) sec BUN 21 H (7-17) mg/dL Glucose 169 H (74-99) mg/dL POC Glucose (mg/dL) (75-99) mg/dL Total Protein 8.3 H (6.3-8.2) g/dL 01/12/20 Range/Units 12:09 WBC (3.8-10.6) k/uL Eosinophils # (0-0.7) k/uL APTT (22.0-30.0) sec BUN (7-17) mg/dL Glucose (74-99) mg/dL POC Glucose (mg/dL) 130 H (75-99) mg/dL Total Protein (6.3-8.2) g/dL Thrombosis Risk Factor Assmnt - DVT/VTE Prophylaxis DVT/VTE Prophylaxis: Pharmacologic Prophylaxis ordered - Choose All That Apply Any of the Below Risk Factors Present?: Yes Each Factor Represents 1 point: Abnormal pulmonary function (COPD), Obesity (BMI >25), Serious lung disease incl. pneumonia (< 1month) Other Risk Factors: Yes Each Risk Factor Represents 3 Points: Age 75 years or older Other congenital or acquired thrombophilia - If yes, enter type in comment: No Thrombosis Risk Factor Assessment Total Risk Factor Score: 6 Thrombosis Risk Factor Assessment Level: High Risk Assessment and Plan Assessment: Shortness of breath secondary to acute COPD exacerbation Acute hypoxic respiratory failure secondary to above Suspected COVID 19 infection due to subjective fevers, shortness of breath and dry cough for the past 2 weeks Hypertensive urgency on admission Questionable atrial fibrillation with rapid ventricular rate. Seem by cardiology and thought to be sinus tachycardia upon review of EKG. Rule out pulmonary embolism History of GERD Hypertension Hyperlipidemia Osteoarthritis Hypothyroidism History of CVA/TIA in 2014 Previous history of smoking Plan: Patient will be continued on IV Solu-Medrol, DuoNeb's and Symbicort. Oxygen THERAPY NEEDED. PATIENT WAS GIVEN gentle hydration. Continue with telemetry monitoring. Cardizem was started due to rapid ventricular rate and titrate down. D-dimer was ordered to rule out pulmonary embolism. CT angiogram if d-dimer is elevated. Continue with blood pressure medications and follow closely. Patient is currently on contact and Doppler precautions. rule out cOVID 19 viral infection. Time with Patient: Greater than 30
[2020-01-13] MEDS: ACETAMINOPHEN TAB 325 MG TAB PO PRN ×3 (03:24→15:25)
[2020-01-13 06:08] LABS: Glucose,Whole Blood 147 mg/dL (75-99)
[2020-01-13] MEDS: INSULIN ASPART (NovoLOG) 100 UNIT/ML VIAL SQ SCH ×4 (06:34→21:43)
[2020-01-13] MEDS: LEVOTHYROXINE 88 MCG TAB PO SCH (06:34)
[2020-01-13] MEDS: methylPREDNISolone SOD SUCCI 125 MG/2 ML VIAL IV SCH ×4 (06:34→21:43)
[2020-01-13] MEDS: AMPICILLIN-SULBACTAM 3 GM in SODIUM CHLORIDE 0.9% 100 ML IVPB SCH ×4 (06:34→21:42)
[2020-01-13] MEDS: ALBUTEROL INHALER 60 PUFF/8 GM INHALER (BULK) INHALATION SCH ×5 (07:29→21:12)
[2020-01-13] MEDS: SYMBICORT 80-4.5 MCG INHALER INHALATION SCH ×2 (08:13→21:12)
[2020-01-13] MEDS: TIOTROPIUM 18 MCG/PUFF INHALER INHALATION SCH (08:13)
[2020-01-13] MEDS: MULTIVITAMINS, THERA 1 EACH TAB PO SCH (09:14)
[2020-01-13] MEDS: ASPIRIN 81 MG PO SCH (09:14)
[2020-01-13] MEDS: VERAPAMIL 40 MG TAB PO SCH ×3 (09:14→21:41)
[2020-01-13] MEDS: LISINOPRIL 20 MG TAB PO SCH (09:14)
--- NOTE | 2020-01-13 09:31 | ECHOF ---
Referral Reason:assess lvf MEASUREMENTS -------- HEIGHT: 162.6 cm WEIGHT: 70.3 kg BP: RVIDd: 3.7 cm (< 3.3) IVSd: 1.5 cm (0.6 - 1.1) LVIDd: 3.2 cm (3.9 - 5.3) LVPWd: 1.2 cm (0.6 - 1.1) IVSs: 1.6 cm LVIDs: 2.3 cm LVPWs: 1.1 cm LA Diam: 3.9 cm (2.7 - 3.8) Ao Diam: 3.3 cm (2.0 - 3.7) AV Cusp: 1.0 cm (1.5 - 2.6) LA Diam: 3.7 cm (2.7 - 3.8) MV E Harris: 0.72 m/s MV DecT: 237 ms MV A Harris: 1.21 m/s MV E/A Ratio: 0.59 AV maxP.88 mmHg AV meanP.61 mmHg RAP: 5.00 mmHg RVSP: 28.86 mmHg FINDINGS -------- Sinus rhythm. This was a technically adequate study. The left ventricular size is normal. There is moderate concentric left ventricular hypertrophy. O verall left ventricular systolic function is normal with, an EF between 55 - 60 %. The right ventricle is normal in size. The left atrial size is normal. The right atrial size is normal. There is moderate aortic valve sclerosis. There is mild aortic stenosis present. Peak/mean gradie nt across the Aortic Valve is 18.88mmHg / 8.61mmHg. Moderate mitral annular calcification present. Mild mitral regurgitation is present. The peak an d mean MV gradients are 14.24mmHg 5.46mmHg as measured by doppler. Mild mitral stenosis. No regurgitation noted Right ventricular systolic pressure is normal at < 35 mmHg. There is no ev idence of pulmonary hypertension. Trace/mild (physiologic) pulmonic regurgitation. The aortic root size is normal. Echo free space represents a pericardial fat pad. CONCLUSIONS -------- 1. There is moderate concentric left ventricular hypertrophy. 2. Overall left ventricular systolic function is normal with, an EF between 55 - 60 %. 3. The left atrial size is normal. 4. There is moderate aortic valve sclerosis. 5. There is mild aortic stenosis present. 6. Peak/mean gradient across the Aortic Valve is 18.88mmHg / 8.61mmHg. 7. Moderate mitral annular calcification present. 8. Mild mitral regurgitation is present. 9. The peak and mean MV gradients are 14.24mmHg 5.46mmHg as measured by doppler. 10. Mild mitral stenosis. 11. No regurgitation noted 12. Right ventricular systolic pressure is normal at < 35 mmHg. 13. Trace/mild (physiologic) pulmonic regurgitation. 14. Echo free space represents a pericardial fat pad. HEARING SCREEN COORDINATOR: Leigha Weir RDCS
[2020-01-13] MEDS ORDERED: LIDOCAINE 1%-EPI 1:100,000 20 ML VIAL SQ STA (09:49)
--- NOTE | 2020-01-13 11:12 | P.PN ---
Subjective Progress Note Date: 01/13/20 This is a 79-year-old female with history of COPD, nicotine dependence, prior TIA, anxiety, who presents to the hospital with symptoms of greater than one week progression of shortness of breath. Patient states that she noticed her shortness of breath about a week ago and since then every days been progressively worse to the point where she could not breathe at all. She also states that she feels as though she's been running some mild fevers at home and has a wheezy cough. Initially a cardiology consultation was requested for atrial fibrillation, but on review of the patient's EKG, she came in with a sinus tachycardia, and continues to be in sinus tachycardia at the time of my examination. She is currently on IV Cardizem at 5. Chest x-ray showed COPD with chronic appearing changes. Blood pressure on arrival to the hospital 196/130 with a heart rate in the 120 to 1:30 range, O2 saturation 98% on blow-by device. Patient is currently afebrile. Laboratory data was reviewed, white blood cell count 11.0, hemoglobin 14.1, platelet count 317. Sodium 140, potassium 4.8, BUN 21 and creatinine 0.9, troponin 0.012. At the time of my examination, patient was quite short of breath, had to sit straight up in bed to breathe. Continues to have an intermittent tight wheezy cough. 01/13/2020 Patient was seen and examined this morning, she appears to be breathing significantly better today overall. Continues to be in a sinus rhythm this morning, patient was having episodes of multifocal atrial tachycardia, no evidence of any atrial fibrillation. Echocardiogram with Doppler study revealed a normal left ventricular systolic function. CAT scan of the chest was performed which revealed some linear atelectasis in the lingula region, possible bronchitis, small focal ground glass infiltrate at the right cardiac border was noted. Blood pressure 134/70 with a heart rate in the 80s today. COVID testing is still in progress. Objective - Vital Signs Vital signs: Vital Signs Temp 97.7 F 01/13/20 08:00 Pulse 83 01/13/20 08:00 Resp 18 01/13/20 08:00 BP 134/73 01/13/20 08:00 Pulse Ox 96 01/13/20 08:00 Intake & Output 01/12/20 01/13/20 01/13/20 18:59 06:59 18:59 Intake Total 607 360 Output Total 600 250 300 Balance 7 -250 60 Weight 71.2 kg 74.5 kg Intake: IV 10 Invasive Line 1 10 Oral 597 360 Output: Urine 600 250 300 Other: Voiding Method Bedpan Bedpan Bedpan # Voids 2 # Bowel Movements 1 - Exam PHYSICAL EXAMINATION: GENERAL: 79-year-old female in no acute distress at the time of my examination HEENT: Head is atraumatic, normocephalic. Pupils equal, round. Sclera anicteric. Conjunctiva are clear. Mucous membranes of the mouth are moist. Neck is supple. There is no elevated jugular venous pressure. No carotid bruit is heard. HEART EXAMINATION: Heart S1, S2 normal. No murmur or gallop heard. CHEST EXAMINATION: On's reveal scattered wheezing throughout, improved air exchange from yesterday. ABDOMEN: Soft, nontender. Bowel sounds are heard. No organomegaly noted. BACK: Patient does have a large boil noted on her upper back EXTREMITIES: 2+ peripheral pulses with no evidence of peripheral edema and no calf tenderness noted. NEUROLOGIC patient is awake, alert and oriented 3 . - Labs CBC & Chem 7: 01/12/20 08:45 01/12/20 08:45 Labs: Abnormal Lab Results - Last 24 Hours (Table) 01/12/20 01/12/20 01/12/20 Range/Units 12:09 14:42 14:42 D-Dimer 1.96 H (<0.60) mg/L FEU POC Glucose (mg/dL) 130 H (75-99) mg/dL Procalcitonin 0.11 H (0.02-0.09) ng/mL 01/12/20 01/12/20 01/13/20 Range/Units 16:52 21:03 06:07 D-Dimer (<0.60) mg/L FEU POC Glucose (mg/dL) 167 H 181 H 147 H (75-99) mg/dL Procalcitonin (0.02-0.09) ng/mL Microbiology - Last 24 Hours (Table) 01/12/20 15:55 Gram Stain - Preliminary Back Wound Culture - Preliminary 01/12/20 15:55 Anaerobic Culture - Preliminary Back Assessment and Plan Plan: Assessment and plan #1 symptoms of one week to 10 day duration of progressively worsening shortness of breath with associated mild fever and wheezy cough. Rule out possible COVID 19. Versus a possible COPD exacerbation. Initial chest x-ray did not reveal any acute findings. CAT scan from today showed some linear atelectasis, and the lingual lobe region possible bronchitis, small focal ground glass infiltrate at the right cardiac border #2 sinus tachycardia, multifocal atrial tachycardia #3 COPD #4 nicotine dependence #5 prior TIA #6 anxiety #7 hypertensive urgency Plan Echocardiogram with Doppler study revealed a normal left ventricular systolic function. We will discontinue the Cardizem drip and start the patient on verapamil 40 mg one tablet by mouth 3 times a day. Covid testing in progress. DNP note has been reviewed, I agree with a documented findings and plan of care. Patient was seen and examined.
[2020-01-13 11:25] LABS: Ferritin 118.2 ng/mL (10.0-291.0)
--- NOTE | 2020-01-13 11:35 | P.GSCN ---
History of Present Illness Consult date: 01/13/20 Reason for Consult: Back abscess History of present illness: Is a 79-year-old female who has developed a back abscess related to a chronic sebaceous cyst. Patient developed pain and tenderness at the site. The spaces measures prostate 2 cm in her mid upper back. She's had some purulent drainage. Past Medical History Past Medical History: Atrial Fibrillation, COPD, CVA/TIA, GERD/Reflux, Hyperlipidemia, Hypertension, Osteoarthritis (OA), Pneumonia, Thyroid Disorder Additional Past Medical History / Comment(s): TIA in 2013, diverticular disease, hypothyroid, arthritis in multiple joints, sinus problems History of Any Multi-Drug Resistant Organisms: None Reported Past Surgical History: Breast Surgery, Orthopedic Surgery Additional Past Surgical History / Comment(s): Benign rt breast lumpectomy, bunionectomy left foot, colonoscopies, luis cataracts Past Anesthesia/Blood Transfusion Reactions: Postoperative Nausea & Vomiting (PONV) Smoking Status: Former smoker - Past Family History Mother Family Medical History: Diabetes Mellitus Additional Family Medical History / Comment(s): Mother had heart problems. Father Family Medical History: No Reported History Additional Family Medical History / Comment(s): Father was healthy and lived to be 98yrs old. Medications and Allergies Home Medications Medication Instructions Recorded Confirmed Type ALPRAZolam [Xanax] 0.5 mg PO TID PRN 10/19/16 01/12/20 History Aspirin [Adult Low Dose Aspirin EC] 81 mg PO DAILY 10/19/16 01/12/20 History Ipratropium-Albuterol Nebulize 3 ml INHALATION RT-QID PRN 10/19/16 01/12/20 History [Duoneb 0.5 mg-3 mg/3 ml Soln] Levothyroxine Sodium [Synthroid] 88 mcg PO DAILY 10/19/16 01/12/20 History Multivitamins, Thera [Multivitamin] 1 tab PO DAILY 10/19/16 01/12/20 History Ramipril 10 mg PO DAILY 10/19/16 01/12/20 History Rosuvastatin [Crestor] 20 mg PO HS 10/19/16 01/12/20 History Albuterol Sulfate [Ventolin HFA] 2 puff INHALATION RT-Q4H PRN 01/12/20 01/12/20 History Biotin 5,000 mcg PO DAILY 01/12/20 01/12/20 History Citracal/Vit D 200-250 1 tab PO DAILY 01/12/20 01/12/20 History Cyclobenzaprine [Flexeril] 5 - 10 mg PO BID PRN 01/12/20 01/12/20 History Dicyclomine [Bentyl] 10 mg PO TID PRN 01/12/20 01/12/20 History Meloxicam [Mobic] 7.5 - 15 mg PO DAILY 01/12/20 01/12/20 History Allergies Allergy/AdvReac Type Severity Reaction Status Date / Time rofecoxib [From Vioxx] Allergy flu like Verified 10/19/16 15:18 symptoms and abdominal pain tramadol [From Ultram] Allergy flu like Verified 10/19/16 15:18 symptoms Surgical - Exam Vital Signs Pulse Pulse Ox 121 H 97 01/12/20 08:33 01/12/20 08:33 - General well developed, well nourished, no distress - Eyes PERRL - Integumentary 2 cm infected sebaceous cyst with purulent drainage in the upper back. Results - Labs 01/12/20 08:45 01/12/20 08:45 Abnormal Lab Results - Last 24 Hours (Table) 01/12/20 01/12/20 01/12/20 Range/Units 12:09 14:42 14:42 D-Dimer 1.96 H (<0.60) mg/L FEU POC Glucose (mg/dL) 130 H (75-99) mg/dL Procalcitonin 0.11 H (0.02-0.09) ng/mL 01/12/20 01/12/20 01/13/20 Range/Units 16:52 21:03 06:07 D-Dimer (<0.60) mg/L FEU POC Glucose (mg/dL) 167 H 181 H 147 H (75-99) mg/dL Procalcitonin (0.02-0.09) ng/mL Microbiology - Last 24 Hours (Table) 01/12/20 15:55 Gram Stain - Preliminary Back Wound Culture - Preliminary 01/12/20 15:55 Anaerobic Culture - Preliminary Back Assessment and Plan Plan: Infected sebaceous cyst. Patient will undergo incision and drainage.
--- NOTE | 2020-01-13 11:36 | P.OP ---
Date of Procedure: 01/13/20 Preoperative Diagnosis: Infected sebaceous cyst back Postoperative Diagnosis: Infected sebaceous cyst of back Procedure(s) Performed: Incision drainage of infected sebaceous cyst Anesthesia: local Surgeon: Andreas Hurtado Pathology: none sent Condition: stable Disposition: PACU Description of Procedure: The patient's placed on her bed and lateral position. The space this was anesthetized 1% local Xylocaine. The skin had necrosed over topthis year. Using gentle pressure the sebaceous cyst was excised from the cavity. Sterile dressings was applied. Patient top she will well.
[2020-01-13 11:54] LABS: Glucose,Whole Blood 111 mg/dL (75-99)
[2020-01-13] MEDS: DOCUSATE 100 MG CAP PO SCH ×2 (13:15→21:41)
--- NOTE | 2020-01-13 14:02 | P.PN ---
Subjective Progress Note Date: 01/13/20 Principal diagnosis: Acute hypoxic rest or a failure related to acute exacerbation of COPD, with the possibility of Covid 19 infection, patient has been tested and the results are p ending at this time. Reports some fevers and cough, shortness of breath at home 79-year-old white female patient of Dr. Smith, with past medical history of COPD, hypertension, chronic atrial fibrillation, previous history of CVA/TIA, hypothyroidism, current every day smoker, smokes half a pack a day for the past 40 years, who presented to the emergency department per EMS on 01/12/2020, for evaluation of increasing shortness of breath that started yesterday. patient did have fevers at home. She states she has been at home under stable home order since December 21. She does have family members that tested positive for Covid 19 however they have been and self-isolation and have not had any contact with the patient says before December 21. She states she called her [id number] who did test positive for Covid 19 this morning to transport her to the hospital however upon further thought she changed her mind and called the ambulance. Patient had not taken her usual medications this morning, her blood pressure on arrival was 220/120, she was in A. fib RVR with a rate of 1:30 BPM, she denies any fevers, denies any nausea vomiting, denies any diaphoresis, no chest pain. Patient was bronchospastic, dyspneic, with audible wheezing. EKG showed A. fib RVR, with nonspecific ST-T wave configuration. Chest x-ray showed COPD, chronic appearing changes, and no definite acute process. Lab work has been reviewed showing white blood cell count 11.0, 11 of 14.1, coagulation profile was within normal limits, d-dimer was not checked yet, a lecture lites are within normal limits, BUN is 21 creatinine 0.92, lactic acid is 0.8, LFTs were within normal limits, troponin was less than 0.012, proBNP was within normal limits at 202, influenza screen was negative. COVID 19 testing has been ordered in in progress, pro- calcitonin this pending, d-dimer has been ordered, cardiology has evaluated the patient, determined that patient was in sinus tachycardia, nevertheless patient was started on heparin infusion for anticoagulation. On 01/13/2020 patient seen in follow-up on selective care unit, she is feeling better today, breathing easier, her pulse ox is 94%, hemodynamically patient is stable, she's been afebrile, respirations are nonlabored, no tachypnea, no dyspnea, vital signs are stable, no complaints of chest pain. No significant cough or congestion. Lung sounds are diminished to auscultation, no rhonchi or wheezing. Her Covid 19 testing still pending, Procalcitonin level was low at 0.11. Patient is on IV steroids, she is on inhalers including Spiriva, Symbicort and albuterol, a much easier today, she had a surgical evaluation for her incision and drainage on her upper back. Is on antibiotics using Unasyn and Zithromax Objective - Vital Signs Vital signs: Vital Signs Temp 97.7 F 01/13/20 08:00 Pulse 84 01/13/20 11:20 Resp 16 01/13/20 11:20 BP 108/56 01/13/20 11:20 Pulse Ox 94 L 01/13/20 11:20 Intake & Output 01/12/20 01/13/20 01/13/20 18:59 06:59 18:59 Intake Total 607 360 Output Total 600 250 300 Balance 7 -250 60 Weight 71.2 kg 74.5 kg Intake: IV 10 Invasive Line 1 10 Oral 597 360 Output: Urine 600 250 300 Other: Voiding Method Bedpan Bedpan Bedpan # Voids 2 # Bowel Movements 1 - Exam GENERAL EXAM: Alert, very pleasant, 71-year-old white female, on 3 L of oxygen with a pulse ox of 97%, dyspneic on today's conversation, she is on room air today, breathing appears to be comfortable HEAD: Normocephalic/atraumatic. EYES: Normal reaction of pupils, equal size. Conjunctiva pink, sclera white. NOSE: Clear with pink turbinates. THROAT: No erythema or exudates. NECK: No masses, no JVD, no thyroid enlargement, no adenopathy. CHEST: No chest wall deformity. Symmetrical expansion. LUNGS: Equal air entry with diminished breath sounds bilaterally, no rhonchi, no wheezing. CVS: Regular rate and rhythm, normal S1 and S2, no gallops, no murmurs, no rubs ABDOMEN: Soft, nontender. No hepatosplenomegaly, normal bowel sounds, no guarding or rigidity. EXTREMITIES: No clubbing, no edema, no cyanosis, 2+ pulses and upper and lower extremities. MUSCULOSKELETAL: Muscle strength and tone normal. SPINE: No scoliosis or deformity SKIN: a large draining boil noted on upper back, draining purulent drainage CENTRAL NERVOUS SYSTEM: Alert and oriented -3. No focal deficits, tone is normal in all 4 extremities. PSYCHIATRIC: Alert and oriented -3. Appropriate affect. Intact judgment and insight. - Labs CBC & Chem 7: 01/12/20 08:45 01/12/20 08:45 Labs: Abnormal Lab Results - Last 24 Hours (Table) 01/12/20 01/12/20 01/12/20 Range/Units 14:42 14:42 16:52 D-Dimer 1.96 H (<0.60) mg/L FEU POC Glucose (mg/dL) 167 H (75-99) mg/dL Procalcitonin 0.11 H (0.02-0.09) ng/mL 01/12/20 01/13/20 01/13/20 Range/Units 21:03 06:07 11:50 D-Dimer (<0.60) mg/L FEU POC Glucose (mg/dL) 181 H 147 H 111 H (75-99) mg/dL Procalcitonin (0.02-0.09) ng/mL Microbiology - Last 24 Hours (Table) 01/12/20 15:55 Gram Stain - Preliminary Back Wound Culture - Preliminary 01/12/20 15:55 Anaerobic Culture - Preliminary Back Assessment and Plan Plan: Assessment: #1. Acute hypoxic rest or a failure related to acute exacerbation of COPD, with the possibility of Covid 19 infection, patient has been tested and the results are pending at this time. Reports some fevers and cough, shortness of breath at home #2. A. fib with RVR on presentation, patient has been evaluated by cardiology, and it was determined the patient was in sinus tachycardia, currently on Cardizem drip and heparin for anticoagulation #3. Chronic obstructive pulmonary disease #4. Hypertensive urgency on presentation improved. Chest x-ray did not show any definite evidence of edema #5. Previous history of CVA/TIA #6. Anxiety #7. Chronic and ongoing nicotine dependence, smoked for 40 years half a pack a day #8. Osteoarthritis #9. Hypothyroidism #10. Diverticular disease #11. Large draining boil on upper back, and surgery will be consulted. Plan: Increase activity as tolerated, continue current antibiotics, patient has had no fever or chills, patient is less dyspneic. Continue current medical treatment, steroids, and MDI inhalers, Covid 19 testing is still pending. Vital signs are stable, afebrile. I performed a history & physical examination of the patient and discussed their management with my nurse practitioner, Chery Bell. I reviewed the nurse practitioner's note and agree with the documented findings and plan of care. Lung sounds are positive for diffuse wheezes throughout the lung stinson. The findings and the impression was discussed with the patient. I attest to the documentation by the nurse practitioner. Time with Patient: Less than 30
[2020-01-13 16:38] LABS: Glucose,Whole Blood 170 mg/dL (75-99)
[2020-01-13] MEDS: AZITHROMYCIN 500 MG TAB PO SCH (17:21)
[2020-01-13 20:54] LABS: Glucose,Whole Blood 228 mg/dL (75-99)
[2020-01-13] MEDS: ATORVASTATIN 40 MG TAB PO SCH (21:41)
[2020-01-13] MEDS: ALPRAZolam 0.5 MG TAB PO PRN (21:51)
--- NOTE | 2020-01-13 23:58 | P.PN ---
Subjective Progress Note Date: 01/13/20 Principal diagnosis: COPD exacerbation Patient is a 79-year-old female with known history of COPD, previous history of smoking, history of TIA/CVA, hypertension, hyperlipidemia, osteoarthritis and anxiety and questionable history of atrial fibrillation currently not on any anticoagulation at home came to ER with the complaints of shortness of breath which is getting worse since yesterday. Patient says that she's been having cough for the past 2 weeks and subjective fevers at home. Patient also did not take her medications today morning. Her blood pressure was elevated with SBP greater than 220 on admission. Patient was also tachycardic and tachypneic and also hypoxic on admission. Patient was febrile in the hospital. Denied any nausea vomiting or diarrhea or abdominal pain. No complaints of chest pain. Patient does have headache but no dizziness or lightheadedness. Denied any sick contacts or recent travel. EKG showed atrial fibrillation with rapid ventricular rate on admission and was started on Cardizem drip and heparin drip. Chest x-ray showed COPD with chronic appearing changes. Laboratory data showed pelvis 11.0, hemoglobin 14.1, platelets 317, sodium 140, potassium 4.8, BUN 21 and creatinine 0.9 and troponin 0.012 Patient was seen by cardiology. After reviewing EKG, patient was found to be in sinus tachycardia on admission. D-dimer was ordered. 01/13/2020 Patient is currently lying in the bed comfortably. Shortness of breath is improving. CT angiogram is negative for pulmonary embolism. Currently being continued on IV steroids, DuoNeb's and Symbicort. Antibiotics in the form of Unasyn and azithromycin. Covid 19 testing is pending. Denied any significant cough today. Patient has been afebrile. No complaints of chest pain. No nausea vomiting or abdominal pain. No diarrhea no. Tolerating oral diet. Cultures have been negative so far. Patient is status post I&D of infected sebaceous cyst on the back. Active Medications Acetaminophen (Tylenol Tab) 650 mg PO Q6HR PRN PRN Reason: Fever and/ or Pain Last Admin: 01/13/20 15:25 Dose: 650 mg Documented by: Acetaminophen/Codeine Phosphate (Tylenol #3) 2 each PO Q6HR PRN PRN Reason: Pain Albuterol Sulfate (Ventolin Hfa Inhaler) 2 puff INHALATION RT-Q4H UCHE Last Admin: 01/13/20 21:12 Dose: 2 puff Documented by: Alprazolam (Xanax) 0.5 mg PO TID PRN PRN Reason: Anxiety Last Admin: 01/13/20 21:51 Dose: 0.5 mg Documented by: Aspirin (Aspirin) 81 mg PO DAILY [facility] Last Admin: 01/13/20 09:14 Dose: 81 mg Documented by: Atorvastatin Calcium (Lipitor) 40 mg PO HS [facility] Last Admin: 01/13/20 21:41 Dose: 40 mg Documented by: Azithromycin (Zithromax) 500 mg PO Q24H [facility] Last Admin: 01/13/20 17:21 Dose: 500 mg Documented by: Budesonide/Formoterol Fumarate (Symbicort 80-4.5 Mcg Inhaler) 2 puff INHALATION RT-BID [facility] Last Admin: 01/13/20 21:12 Dose: 2 puff Documented by: Docusate Sodium (Colace) 100 mg PO BID [facility] Last Admin: 01/13/20 21:41 Dose: 100 mg Documented by: Ampicillin Sodium/Sulbactam (Sodium 3 gm/ Sodium Chloride) 100 mls @ 200 mls/hr IVPB Q6H [facility] Last Admin: 01/13/20 21:42 Dose: 200 mls/hr Documented by: Insulin Aspart (Novolog) 0 unit SQ ACHS [facility]; Protocol Last Admin: 01/13/20 21:43 Dose: 4 unit Documented by: Levothyroxine Sodium (Synthroid) 88 mcg PO DAILY@0630 [facility] Last Admin: 01/13/20 06:34 Dose: 88 mcg Documented by: Lisinopril (Zestril) 40 mg PO DAILY [facility] Last Admin: 01/13/20 09:14 Dose: 40 mg Documented by: Methylprednisolone Sodium Succinate (Solu-Medrol) 60 mg IV Q6HR [facility] Last Admin: 01/13/20 21:43 Dose: 60 mg Documented by: Multivitamins (Theragran) 1 each PO DAILY [facility] Last Admin: 01/13/20 09:14 Dose: 1 each Documented by: Tiotropium Aiken (Spiriva) 1 puff INHALATION RT-DAILY [facility] Last Admin: 01/13/20 08:13 Dose: 1 puff Documented by: Verapamil HCl (Isoptin) 40 mg PO TID [facility] Last Admin: 01/13/20 21:41 Dose: 40 mg Documented by: Objective - Vital Signs Vital signs: Vital Signs Temp 97.7 F 01/13/20 08:00 Pulse 84 01/13/20 11:20 Resp 16 01/13/20 11:20 BP 108/56 01/13/20 11:20 Pulse Ox 94 L 01/13/20 11:20 Intake & Output 01/12/20 01/13/20 01/13/20 18:59 06:59 18:59 Intake Total 607 360 Output Total 600 250 300 Balance 7 -250 60 Weight 71.2 kg 74.5 kg Intake: IV 10 Invasive Line 1 10 Oral 597 360 Output: Urine 600 250 300 Other: Voiding Method Bedpan Bedpan Bedpan # Voids 2 # Bowel Movements 1 - Exam PHYSICAL EXAMINATION: Patient is lying in the bed comfortably, no acute distress, awake alert and oriented.. HEENT: Normocephalic. Neck is supple. Pupils reactive. Nostrils clear. Oral cavity is moist. Ears reveal no drainage. Neck reveals no JVD, carotid bruits, or thyromegaly. CHEST EXAMINATION: Trachea is central. Symmetrical expansion. Bilateral wheezing and improved air entry. CARDIAC: Normal S1, S2 with no gallops. No murmurs ABDOMEN: Soft. Bowel sounds normal. No organomegaly. No abdominal bruits. Extremities: reveal no edema. No clubbing or cyanosis Neurologically awake, alert, oriented x3 with well-coordinated movements. No focal deficits noted Skin: No rash or skin lesions. Psychiatric: Coperative. Nonsuicidal Musculoskeletal: No joint swelling or deformity. Normal range of motion. - Labs CBC & Chem 7: 01/12/20 08:45 01/12/20 08:45 Labs: Abnormal Lab Results - Last 24 Hours (Table) 01/12/20 01/12/20 01/12/20 Range/Units 14:42 14:42 16:52 D-Dimer 1.96 H (<0.60) mg/L FEU POC Glucose (mg/dL) 167 H (75-99) mg/dL Procalcitonin 0.11 H (0.02-0.09) ng/mL 01/12/20 01/13/20 01/13/20 Range/Units 21:03 06:07 11:50 D-Dimer (<0.60) mg/L FEU POC Glucose (mg/dL) 181 H 147 H 111 H (75-99) mg/dL Procalcitonin (0.02-0.09) ng/mL Microbiology - Last 24 Hours (Table) 01/12/20 15:55 Gram Stain - Preliminary Back Wound Culture - Preliminary 01/12/20 15:55 Anaerobic Culture - Preliminary Back Assessment and Plan Assessment: Shortness of breath secondary to acute COPD exacerbation Acute hypoxic respiratory failure secondary to above Suspected COVID 19 infection due to subjective fevers, shortness of breath and dry cough for the past 2 weeks Hypertensive urgency on admission Questionable atrial fibrillation with rapid ventricular rate. Seem by cardiology and thought to be sinus tachycardia upon review of EKG. Sebaceous cyst on the back. Status post I&D. Rule out pulmonary embolism History of GERD Hypertension Hyperlipidemia Osteoarthritis Hypothyroidism History of CVA/TIA in 2013 Previous history of smoking Plan: Patient will be continued on IV Solu-Medrol, DuoNeb's and Symbicort. Oxygen THERAPY NEEDED. PATIENT WAS GIVEN gentle hydration. Continue with telemetry monitoring. Cardizem has been discontinued. Patient was started on the verapamil.. D-dimer was ordered to rule out pulmonary embolism which is elevated. CT angiogram is negative for PE. Continue with blood pressure medications and follow closely. Patient is currently on contact and Doppler precautions. rule out cOVID 19 viral infection. Time with Patient: Greater than 30
[2020-01-14] MEDS: LEVOTHYROXINE 88 MCG TAB PO SCH (05:33)
[2020-01-14] MEDS: AMPICILLIN-SULBACTAM 3 GM in SODIUM CHLORIDE 0.9% 100 ML IVPB SCH ×2 (05:33→10:19)
[2020-01-14] MEDS: methylPREDNISolone SOD SUCCI 125 MG/2 ML VIAL IV SCH ×2 (05:33→10:20)
[2020-01-14 06:16] LABS: Glucose,Whole Blood 137 mg/dL (75-99)
[2020-01-14] MEDS: INSULIN ASPART (NovoLOG) 100 UNIT/ML VIAL SQ SCH ×4 (06:23→22:16)
[2020-01-14] MEDS: ALBUTEROL INHALER 60 PUFF/8 GM INHALER (BULK) INHALATION SCH ×6 (07:16→21:00)
[2020-01-14] MEDS: TIOTROPIUM 18 MCG/PUFF INHALER INHALATION SCH (07:16)
[2020-01-14] MEDS: SYMBICORT 80-4.5 MCG INHALER INHALATION SCH ×2 (07:18→21:00)
[2020-01-14 07:23] LABS: Basophils % (A) 0 %; Eosinophils % (A) 0 %; HCT 34.6 % (34.0-46.0); Lymphocytes # (A) 0.9 k/uL (1.0-4.8); Lymphocytes % (A) 4 %; MCHC 31.3 g/dL (31.0-37.0); MCV 99.1 fL (80.0-100.0); Mean Platelet Volume 7.6; Monocytes # (A) 0.6 k/uL (0-1.0); Monocytes % (A) 3 %; Neutrophils # (A) 19.9 k/uL (1.3-7.7); Neutrophils % (A) 92 %; Platelet Count 240 k/uL (150-450); RBC 3.49 m/uL (3.80-5.40); RDW 13.5 % (11.5-15.5); WBC 21.6 k/uL (3.8-10.6)
[2020-01-14 07:37] LABS: HGB 10.8 gm/dL (11.4-16.0)
[2020-01-14 07:42] LABS: Calcium 8.7 mg/dL (8.4-10.2); Potassium 4.4 mmol/L (3.5-5.1)
[2020-01-14] MEDS: DOCUSATE 100 MG CAP PO SCH ×2 (10:18→22:03)
[2020-01-14] MEDS: ACETAMINOPHEN TAB 325 MG TAB PO PRN ×2 (10:18→22:15)
[2020-01-14] MEDS: LISINOPRIL 20 MG TAB PO SCH (10:19)
[2020-01-14] MEDS: VERAPAMIL 40 MG TAB PO SCH ×3 (10:19→22:14)
[2020-01-14] MEDS: MULTIVITAMINS, THERA 1 EACH TAB PO SCH (10:19)
[2020-01-14] MEDS: ASPIRIN 81 MG PO SCH (10:19)
[2020-01-14 11:43] LABS: Glucose,Whole Blood 138 mg/dL (75-99)
--- NOTE | 2020-01-14 12:33 | P.PN ---
Progress Note - Text Progress Note Date: 01/14/20 The patient had her back. Yesterday. On exam her vital signs are stable. Her back wound is clean. Patient will continue local wound care.
[2020-01-14] MEDS: HYDROXYCHLOROQUINE SULFATE 200 MG TAB PO SCH ×2 (12:58→22:15)
--- NOTE | 2020-01-14 15:41 | P.PN ---
Subjective Progress Note Date: 01/14/20 Principal diagnosis: Acute hypoxic rest or a failure related to acute exacerbation of COPD, with the possibility of Covid 19 infection, patient has been tested and the results are pending at this time. Reports some fevers and cough, shortness of breath at home 79-year-old white female patient of Dr. Smith, with past medical history of COPD, hypertension, chronic atrial fibrillation, previous history of CVA/TIA, hypothyroidism, current every day smoker, smokes half a pack a day for the past 40 years, who presented to the emergency department per EMS on 01/12/2020, for evaluation of increasing shortness of breath that started yesterday. patient did have fevers at home. She states she has been at home under stable home order since December 21. She does have family members that tested positive for Covid 19 however they have been and self-isolation and have not had any contact with the patient says before December 21. She states she called her [id number] who did test positive for Covid 19 this morning to transport her to the hospital however upon further thought she changed her mind and called the ambulance. Patient had not taken her usual medications this morning, her blood pressure on arrival was 220/120, she was in A. fib RVR with a rate of 1:30 BPM, she denies any fevers, denies any nausea vomiting, denies any diaphoresis, no chest pain. Patient was bronchospastic, dyspneic, with audible wheezing. EKG showed A. fib RVR, with nonspecific ST-T wave configuration. Chest x-ray showed COPD, chronic appearing changes, and no definite acute process. Lab work has been reviewed showing white blood cell count 11.0, 11 of 14.1, coagulation profile was within normal limits, d-dimer was not checked yet, a lecture lites are within normal limits, BUN is 21 creatinine 0.92, lactic acid is 0.8, LFTs were within normal limits, troponin was less than 0.012, proBNP was within normal limits at 202, influenza screen was negative. COVID 19 testing has been ordered in in progress, pro- calcitonin this pending, d-dimer has been ordered, cardiology has evaluated the patient, determined that patient was in sinus tachycardia, nevertheless patient was started on heparin infusion for anticoagulation. On 01/13/2020 patient seen in follow-up on selective care unit, she is feeling better today, breathing easier, her pulse ox is 94%, hemodynamically patient is stable, she's been afebrile, respirations are nonlabored, no tachypnea, no dyspnea, vital signs are stable, no complaints of chest pain. No significant cough or congestion. Lung sounds are diminished to auscultation, no rhonchi or wheezing. Her Covid 19 testing still pending, Procalcitonin level was low at 0.11. Patient is on IV steroids, she is on inhalers including Spiriva, Symbicort and albuterol, a much easier today, she had a surgical evaluation for her incision and drainage on her upper back. Is on antibiotics using Unasyn and Zithromax On 01/14/2020 the patient was seen in follow-up on the cardiac stepdown unit. She continues to feel better daily. She remains afebrile, hemodynamically stable. She is currently on room air with oxygen saturation in the 90s. Covid 19 testing resulted as positive. Objective - Vital Signs Vital signs: Vital Signs Temp 98.1 F 01/14/20 04:00 Pulse 69 01/14/20 04:00 Resp 20 01/14/20 04:00 BP 126/70 01/14/20 04:00 Pulse Ox 93 L 01/14/20 04:00 Intake & Output 01/13/20 01/14/20 01/14/20 18:59 06:59 18:59 Intake Total 360 340 480 Output Total 600 Balance -240 340 480 Weight 73.9 kg Intake: Intake, IV Titration 100 Amount Ampicillin-Sulbactam 3 gm 100 In Sodium Chloride 0.9% 100 ml @ 200 mls/hr IVPB Q6H [facility] Rx#:[id number] Oral 360 240 480 Output: Urine 600 Other: Voiding Method Bedpan Bedpan # Voids 2 # Bowel Movements 1 - Constitutional General appearance: Present: cooperative, no acute distress - Respiratory Details: Lungs sounds clear bilaterally with diminished breath sounds in the bases. Respirations even, nonlabored. Currently on room air with oxygen saturation 93%. - Cardiovascular Details: S1, S2 present. Regular rate and rhythm, sinus rhythm on telemetry. Palpable peripheral pulses bilaterally. No edema present. No calf pain or tenderness noted. - Gastrointestinal Gastrointestinal Comment(s): Abdomen soft, nontender, nondistended. No organomegaly. Active bowel sounds present 4 quadrants. Tolerating diet. - Genitourinary Genitourinary Comment(s): Continues to void. - Integumentary Integumentary Comment(s): Skin is warm and dry. Patient does have a large draining boil noted to her upper back with purulent drainage - Neurologic Neurologic: Present: CNII-XII intact - Musculoskeletal Musculoskeletal: Present: strength equal bilaterally - Psychiatric Psychiatric: Present: A&O x's 3, appropriate affect, intact judgment & insight - Allied health notes Allied health notes reviewed: nursing - Labs CBC & Chem 7: 01/14/20 06:46 01/14/20 06:46 Labs: Abnormal Lab Results - Last 24 Hours (Table) 01/13/20 01/13/20 01/14/20 Range/Units 16:36 20:53 06:14 WBC (3.8-10.6) k/uL RBC (3.80-5.40) m/uL Hgb (11.4-16.0) gm/dL Neutrophils # (1.3-7.7) k/uL Lymphocytes # (1.0-4.8) k/uL Sodium (137-145) mmol/L BUN (7-17) mg/dL Glucose (74-99) mg/dL POC Glucose (mg/dL) 170 H 228 H 137 H (75-99) mg/dL 01/14/20 01/14/20 01/14/20 Range/Units 06:46 06:46 11:36 WBC 21.6 H (3.8-10.6) k/uL RBC 3.49 L (3.80-5.40) m/uL Hgb 10.8 L D (11.4-16.0) gm/dL Neutrophils # 19.9 H (1.3-7.7) k/uL Lymphocytes # 0.9 L (1.0-4.8) k/uL Sodium 136 L (137-145) mmol/L BUN 29 H (7-17) mg/dL Glucose 118 H (74-99) mg/dL POC Glucose (mg/dL) 138 H (75-99) mg/dL Microbiology - Last 24 Hours (Table) 01/12/20 15:55 Gram Stain - Preliminary Back Wound Culture - Preliminary - Imaging and Cardiology Chest x-ray: report reviewed, image reviewed Assessment and Plan Assessment: #1. Acute hypoxic rest or a failure related to acute exacerbation of COPD, positive Covid 19 infection. Reports some fevers and cough, shortness of breath at home #2. A. fib with RVR on presentation, patient has been evaluated by cardiology, and it was determined the patient was in sinus tachycardia #3. Chronic obstructive pulmonary disease, stable #4. Hypertensive urgency on presentation improved. Chest x-ray did not show any definite evidence of edema #5. Previous history of CVA/TIA #6. Anxiety #7. Chronic and ongoing nicotine dependence, smoked for 40 years half a pack a day #8. Osteoarthritis #9. Hypothyroidism #10. Diverticular disease #11. Large draining boil on upper back Plan: Increase activity as tolerated in her room, discontinue Zithromax, Solu-Medrol, Unasyn, will add Augmentin twice daily 7 days and hydroxychloroquine. Continue current medical treatment, MDI inhalers. Maintain isolation. More recommendations to follow Time with Patient: Greater than 30
--- NOTE | 2020-01-14 15:51 | PN ---
PROGRESS NOTE Mrs. Moffett had a positive test for COVID infection. She is breathing much better. I saw her because of some tachycardia which looked more like multifocal atrial tachycardia and exacerbation of COPD. She is resting comfortably. Denies any chest pain. Vitals are stable. There is JVD of 1 cm. No carotid bruit. Lungs reveal decent air entry. S1, S2 heard normally. Short systolic murmur audible. Rest of physical exam unchanged. I am recommending that we continue her current medications, including verapamil 40 mg t.i.d. Echo revealed good systolic function. Cardiac-fuller she is stable. I will continue to see her as needed. We will continue verapamil. No other intervention necessary from a cardiac standpoint. Echo findings were reviewed with the patient. MMGINGERL / AMYN: [id number] /
[2020-01-14 16:41] LABS: Glucose,Whole Blood 147 mg/dL (75-99)
[2020-01-14 20:27] LABS: Glucose,Whole Blood 154 mg/dL (75-99)
[2020-01-14] MEDS: ATORVASTATIN 40 MG TAB PO SCH (22:15)
[2020-01-14] MEDS: AMOXIC-POT CLAV 875-125MG 1 EACH TAB PO SCH (22:15)
[2020-01-14] MEDS: ALPRAZolam 0.5 MG TAB PO PRN (22:15)
--- NOTE | 2020-01-14 22:22 | P.PN ---
Subjective Progress Note Date: 01/14/20 Principal diagnosis: COPD exacerbation Patient is a 79-year-old female with known history of COPD, previous history of smoking, history of TIA/CVA, hypertension, hyperlipidemia, osteoarthritis and anxiety and questionable history of atrial fibrillation currently not on any anticoagulation at home came to ER with the complaints of shortness of breath which is getting worse since yesterday. Patient says that she's been having cough for the past 2 weeks and subjective fevers at home. Patient also did not take her medications today morning. Her blood pressure was elevated with SBP greater than 220 on admission. Patient was also tachycardic and tachypneic and also hypoxic on admission. Patient was febrile in the hospital. Denied any nausea vomiting or diarrhea or abdominal pain. No complaints of chest pain. Patient does have headache but no dizziness or lightheadedness. Denied any sick contacts or recent travel. EKG showed atrial fibrillation with rapid ventricular rate on admission and was started on Cardizem drip and heparin drip. Chest x-ray showed COPD with chronic appearing changes. Laboratory data showed pelvis 11.0, hemoglobin 14.1, platelets 317, sodium 140, potassium 4.8, BUN 21 and creatinine 0.9 and troponin 0.012 Patient was seen by cardiology. After reviewing EKG, patient was found to be in sinus tachycardia on admission. D-dimer was ordered. 01/13/2020 Patient is currently lying in the bed comfortably. Shortness of breath is improving. CT angiogram is negative for pulmonary embolism. Currently being continued on IV steroids, DuoNeb's and Symbicort. Antibiotics in the form of Unasyn and azithromycin. Covid 19 testing is pending. Denied any significant cough today. Patient has been afebrile. No complaints of chest pain. No nausea vomiting or abdominal pain. No diarrhea no. Tolerating oral diet. Cultures have been negative so far. Patient is status post I&D of infected sebaceous cyst on the back. 01/14/2020 Patient is awake and alert oriented 3. Breathing status is improving. The sleep with ambulation. Patient is positive for Covid 19. Denied any significant cough. Patient is afebrile. Continued on breathing treatments. Was started on hydroxychloroquine. Antibiotics changed to Augmentin. Steroids have been discontinued. No complex of chest pain. No nausea vomiting or abdominal pain or diarrhea. Active Medications Acetaminophen (Tylenol Tab) 650 mg PO Q6HR PRN PRN Reason: Fever and/ or Pain Last Admin: 01/13/20 15:25 Dose: 650 mg Documented by: Acetaminophen/Codeine Phosphate (Tylenol #3) 2 each PO Q6HR PRN PRN Reason: Pain Albuterol Sulfate (Ventolin Hfa Inhaler) 2 puff INHALATION RT-Q4H [facility] Last Admin: 01/13/20 21:12 Dose: 2 puff Documented by: Alprazolam (Xanax) 0.5 mg PO TID PRN PRN Reason: Anxiety Last Admin: 01/13/20 21:51 Dose: 0.5 mg Documented by: Aspirin (Aspirin) 81 mg PO DAILY [facility] Last Admin: 01/13/20 09:14 Dose: 81 mg Documented by: Atorvastatin Calcium (Lipitor) 40 mg PO HS [facility] Last Admin: 01/13/20 21:41 Dose: 40 mg Documented by: Azithromycin (Zithromax) 500 mg PO Q24H [facility] Last Admin: 01/13/20 17:21 Dose: 500 mg Documented by: Budesonide/Formoterol Fumarate (Symbicort 80-4.5 Mcg Inhaler) 2 puff INHALATION RT-BID [facility] Last Admin: 01/13/20 21:12 Dose: 2 puff Documented by: Docusate Sodium (Colace) 100 mg PO BID [facility] Last Admin: 01/13/20 21:41 Dose: 100 mg Documented by: Ampicillin Sodium/Sulbactam (Sodium 3 gm/ Sodium Chloride) 100 mls @ 200 mls/hr IVPB Q6H [facility] Last Admin: 01/13/20 21:42 Dose: 200 mls/hr Documented by: Insulin Aspart (Novolog) 0 unit SQ ACHS [facility]; Protocol Last Admin: 01/13/20 21:43 Dose: 4 unit Documented by: Levothyroxine Sodium (Synthroid) 88 mcg PO DAILY@0630 [facility] Last Admin: 01/13/20 06:34 Dose: 88 mcg Documented by: Lisinopril (Zestril) 40 mg PO DAILY [facility] Last Admin: 01/13/20 09:14 Dose: 40 mg Documented by: Methylprednisolone Sodium Succinate (Solu-Medrol) 60 mg IV Q6HR [facility] Last Admin: 01/13/20 21:43 Dose: 60 mg Documented by: Multivitamins (Theragran) 1 each PO DAILY [facility] Last Admin: 01/13/20 09:14 Dose: 1 each Documented by: Tiotropium [place] (Spiriva) 1 puff INHALATION RT-DAILY [facility] Last Admin: 01/13/20 08:13 Dose: 1 puff Documented by: Verapamil HCl (Isoptin) 40 mg PO TID [facility] Last Admin: 01/13/20 21:41 Dose: 40 mg Documented by: Objective - Vital Signs Vital signs: Vital Signs Temp 98.1 F 01/14/20 04:00 Pulse 69 01/14/20 04:00 Resp 20 01/14/20 04:00 BP 126/70 01/14/20 04:00 Pulse Ox 93 L 01/14/20 04:00 Intake & Output 01/13/20 01/14/20 01/14/20 18:59 06:59 18:59 Intake Total 360 340 480 Output Total 600 Balance -240 340 480 Weight 73.9 kg Intake: Intake, IV Titration 100 Amount Ampicillin-Sulbactam 3 gm 100 In Sodium Chloride 0.9% 100 ml @ 200 mls/hr IVPB Q6H [facility] Rx#:[id number] Oral 360 240 480 Output: Urine 600 Other: Voiding Method Bedpan Bedpan # Voids 2 # Bowel Movements 1 - Exam PHYSICAL EXAMINATION: Patient is lying in the bed comfortably, no acute distress, awake alert and oriented.. HEENT: Normocephalic. Neck is supple. Pupils reactive. Nostrils clear. Oral c avity is moist. Ears reveal no drainage. Neck reveals no JVD, carotid bruits, or thyromegaly. CHEST EXAMINATION: Trachea is central. Symmetrical expansion. Minimal expiratory wheezing and improved air entry. CARDIAC: Normal S1, S2 with no gallops. No murmurs ABDOMEN: Soft. Bowel sounds normal. No organomegaly. No abdominal bruits. Extremities: reveal no edema. No clubbing or cyanosis Neurologically awake, alert, oriented x3 with well-coordinated movements. No focal deficits noted Skin: No rash or skin lesions. Psychiatric: Coperative. Nonsuicidal Musculoskeletal: No joint swelling or deformity. Normal range of motion. - Labs CBC & Chem 7: 01/14/20 06:46 01/14/20 06:46 Labs: Abnormal Lab Results - Last 24 Hours (Table) 01/13/20 01/13/20 01/14/20 Range/Units 16:36 20:53 06:14 WBC (3.8-10.6) k/uL RBC (3.80-5.40) m/uL Hgb (11.4-16.0) gm/dL Neutrophils # (1.3-7.7) k/uL Lymphocytes # (1.0-4.8) k/uL Sodium (137-145) mmol/L BUN (7-17) mg/dL Glucose (74-99) mg/dL POC Glucose (mg/dL) 170 H 228 H 137 H (75-99) mg/dL 01/14/20 01/14/20 01/14/20 Range/Units 06:46 06:46 11:36 WBC 21.6 H (3.8-10.6) k/uL RBC 3.49 L (3.80-5.40) m/uL Hgb 10.8 L D (11.4-16.0) gm/dL Neutrophils # 19.9 H (1.3-7.7) k/uL Lymphocytes # 0.9 L (1.0-4.8) k/uL Sodium 136 L (137-145) mmol/L BUN 29 H (7-17) mg/dL Glucose 118 H (74-99) mg/dL POC Glucose (mg/dL) 138 H (75-99) mg/dL Microbiology - Last 24 Hours (Table) 01/12/20 15:55 Gram Stain - Preliminary Back Wound Culture - Preliminary Assessment and Plan Assessment: Acute Covid 19 viral infection Acute hypoxic respiratory failure secondary to above Suspected COVID 19 infection due to subjective fevers, shortness of breath and dry cough for the past 2 weeks Acute COPD exacerbation Hypertensive urgency on admission Questionable atrial fibrillation with rapid ventricular rate. Seem by cardiology and thought to be sinus tachycardia upon review of EKG. Sebaceous cyst on the back. Status post I&D. Rule out pulmonary embolism History of GERD Hypertension Hyperlipidemia Osteoarthritis Hypothyroidism History of CVA/TIA in 2013 Previous history of smoking Plan: Patient will be continued on DuoNeb's and Symbicort. Oxygen THERAPY NEEDED. PATIENT WAS GIVEN gentle hydration. Continue with telemetry monitoring. Cardizem has been discontinued. Patient was started on the verapamil.. D-dimer was ordered to rule out pulmonary embolism which is elevated. CT angiogram is negative for PE. Continue with blood pressure medications and follow closely. Patient is currently on contact and Doppler precautions due to cOVID 19 viral infection. Anticipate discharge in the next 24 hours with more clinical improvement. Titrate oxygen to room air. Time with Patient: Greater than 30
[2020-01-15] MEDS: ALBUTEROL INHALER 60 PUFF/8 GM INHALER (BULK) INHALATION SCH ×6 (00:49→20:03)
[2020-01-15] MEDS: LEVOTHYROXINE 88 MCG TAB PO SCH (06:34)
[2020-01-15 06:38] LABS: Glucose,Whole Blood 99 mg/dL (75-99)
[2020-01-15] MEDS: INSULIN ASPART (NovoLOG) 100 UNIT/ML VIAL SQ SCH ×4 (06:38→22:03)
[2020-01-15] MEDS: TIOTROPIUM 18 MCG/PUFF INHALER INHALATION SCH (07:39)
[2020-01-15] MEDS: SYMBICORT 80-4.5 MCG INHALER INHALATION SCH ×2 (07:39→20:03)
[2020-01-15 07:52] LABS: Basophils % (A) 0 %; Eosinophils % (A) 0 %; HCT 33.1 % (34.0-46.0); HGB 10.8 gm/dL (11.4-16.0); Lymphocytes # (A) 1.3 k/uL (1.0-4.8); Lymphocytes % (A) 7 %; MCHC 32.7 g/dL (31.0-37.0); MCV 98.1 fL (80.0-100.0); Mean Platelet Volume 8.1; Monocytes # (A) 0.8 k/uL (0-1.0); Monocytes % (A) 5 %; Neutrophils % (A) 86 %; Platelet Count 263 k/uL (150-450); RBC 3.37 m/uL (3.80-5.40); RDW 13.6 % (11.5-15.5); WBC 17.4 k/uL (3.8-10.6)
[2020-01-15] MEDS: VERAPAMIL 40 MG TAB PO SCH ×3 (08:34→22:03)
[2020-01-15] MEDS: MULTIVITAMINS, THERA 1 EACH TAB PO SCH (08:34)
[2020-01-15] MEDS: HYDROXYCHLOROQUINE SULFATE 200 MG TAB PO SCH ×2 (08:35→22:03)
[2020-01-15] MEDS: DOCUSATE 100 MG CAP PO SCH ×2 (08:35→22:03)
[2020-01-15] MEDS: LISINOPRIL 20 MG TAB PO SCH (08:35)
[2020-01-15] MEDS: ASPIRIN 81 MG PO SCH (08:35)
[2020-01-15] MEDS: AMOXIC-POT CLAV 875-125MG 1 EACH TAB PO SCH ×2 (08:35→22:03)
[2020-01-15] MEDS: ACETAMINOPHEN TAB 325 MG TAB PO PRN (08:40)
[2020-01-15 12:01] LABS: Glucose,Whole Blood 88 mg/dL (75-99)
--- NOTE | 2020-01-15 13:09 | P.PN ---
Subjective Progress Note Date: 01/15/20 Principal diagnosis: Acute hypoxic rest or a failure related to acute exacerbation of COPD, with the possibility of Covid 19 infection, patient has been tested and the results are p ending at this time. Reports some fevers and cough, shortness of breath at home 79-year-old white female patient of Dr. Smith, with past medical history of COPD, hypertension, chronic atrial fibrillation, previous history of CVA/TIA, hypothyroidism, current every day smoker, smokes half a pack a day for the past 40 years, who presented to the emergency department per EMS on 01/12/2020, for evaluation of increasing shortness of breath that started yesterday. patient did have fevers at home. She states she has been at home under stable home order since December 21. She does have family members that tested positive for Covid 19 however they have been and self-isolation and have not had any contact with the patient says before December 21. She states she called her [id number] who did test positive for Covid 19 this morning to transport her to the hospital however upon further thought she changed her mind and called the ambulance. Patient had not taken her usual medications this morning, her blood pressure on arrival was 220/120, she was in A. fib RVR with a rate of 1:30 BPM, she denies any fevers, denies any nausea vomiting, denies any diaphoresis, no chest pain. Patient was bronchospastic, dyspneic, with audible wheezing. EKG showed A. fib RVR, with nonspecific ST-T wave configuration. Chest x-ray showed COPD, chronic appearing changes, and no definite acute process. Lab work has been reviewed showing white blood cell count 11.0, 11 of 14.1, coagulation profile was within normal limits, d-dimer was not checked yet, a lecture lites are within normal limits, BUN is 21 creatinine 0.92, lactic acid is 0.8, LFTs were within normal limits, troponin was less than 0.012, proBNP was within normal limits at 202, influenza screen was negative. COVID 19 testing has been ordered in in progress, pro- calcitonin this pending, d-dimer has been ordered, cardiology has evaluated the patient, determined that patient was in sinus tachycardia, nevertheless patient was started on heparin infusion for anticoagulation. On 01/13/2020 patient seen in follow-up on selective care unit, she is feeling better today, breathing easier, her pulse ox is 94%, hemodynamically patient is stable, she's been afebrile, respirations are nonlabored, no tachypnea, no dyspnea, vital signs are stable, no complaints of chest pain. No significant cough or congestion. Lung sounds are diminished to auscultation, no rhonchi or wheezing. Her Covid 19 testing still pending, Procalcitonin level was low at 0.11. Patient is on IV steroids, she is on inhalers including Spiriva, Symbicort and albuterol, a much easier today, she had a surgical evaluation for her incision and drainage on her upper back. Is on antibiotics using Unasyn and Zithromax On 01/15/2020 patient seen in follow-up on selective care unit, she is calm and comfortable, sitting up on the edge of the bed, room air pulse ox is 91%, she is afebrile, she states she still has the fatigue and the coughing, but seems to be in no acute distress, lung sounds are diminished, no rhonchi, no wheezing, no febrile episodes overnight, patient is being treated with hydroxychloroquine, and Augmentin, her wound cultures are negative thus far, anaerobic cultures are still pending, clinically stable, labs have been reviewed, showing limits oh, and trending down down to 17.4, hemoglobin of 10.8, Objective - Vital Signs Vital signs: Vital Signs Temp 97.4 F L 01/15/20 11:50 Pulse 76 01/15/20 11:50 Resp 16 01/15/20 11:55 BP 132/71 01/15/20 11:50 Pulse Ox 91 L 01/15/20 11:50 Intake & Output 01/14/20 01/15/20 01/15/20 18:59 06:59 18:59 Intake Total 900 440 240 Output Total 700 700 Balance 200 -260 240 Weight 75 kg Intake: Oral 900 440 240 Output: Urine 700 700 Other: Voiding Method Bedpan Toilet # Voids 1 2 # Bowel Movements 1 - Exam GENERAL EXAM: Alert, very pleasant, 71-year-old white female, on 3 L of oxygen with a pulse ox of 97%, dyspneic on today's conversation, she is on room air today, breathing appears to be comfortable HEAD: Normocephalic/atraumatic. EYES: Normal reaction of pupils, equal size. Conjunctiva pink, sclera white. NOSE: Clear with pink turbinates. THROAT: No erythema or exudates. NECK: No masses, no JVD, no thyroid enlargement, no adenopathy. CHEST: No chest wall deformity. Symmetrical expansion. LUNGS: Equal air entry with diminished breath sounds bilaterally, no rhonchi, no wheezing. CVS: Regular rate and rhythm, normal S1 and S2, no gallops, no murmurs, no rubs ABDOMEN: Soft, nontender. No hepatosplenomegaly, normal bowel sounds, no guarding or rigidity. EXTREMITIES: No clubbing, no edema, no cyanosis, 2+ pulses and upper and lower extremities. MUSCULOSKELETAL: Muscle strength and tone normal. SPINE: No scoliosis or deformity SKIN: a large draining boil noted on upper back, draining purulent drainage CENTRAL NERVOUS SYSTEM: Alert and oriented -3. No focal deficits, tone is normal in all 4 extremities. PSYCHIATRIC: Alert and oriented -3. Appropriate affect. Intact judgment and insight. - Labs CBC & Chem 7: 01/15/20 06:23 01/14/20 06:46 Labs: Abnormal Lab Results - Last 24 Hours (Table) 01/14/20 01/14/20 01/15/20 Range/Units 16:38 20:25 06:23 WBC 17.4 H (3.8-10.6) k/uL RBC 3.37 L (3.80-5.40) m/uL Hgb 10.8 L (11.4-16.0) gm/dL Hct 33.1 L (34.0-46.0) % Neutrophils # 15.0 H (1.3-7.7) k/uL POC Glucose (mg/dL) 147 H 154 H (75-99) mg/dL Microbiology - Last 24 Hours (Table) 01/12/20 15:55 Gram Stain - Final Back Wound Culture - Final Assessment and Plan Plan: Assessment: #1. Acute hypoxic rest or a failure related to acute exacerbation of COPD, with the possibility of Covid 19 infection, patient has been tested and the results are pending at this time. Reports some fevers and cough, shortness of breath at home #2. A. fib with RVR on presentation, patient has been evaluated by cardiology, and it was determined the patient was in sinus tachycardia, currently on Cardizem drip and heparin for anticoagulation #3. Chronic obstructive pulmonary disease #4. Hypertensive urgency on presentation improved. Chest x-ray did not show any definite evidence of pulmonary edema #5. Previous history of CVA/TIA #6. Anxiety #7. Chronic and ongoing nicotine dependence, smoked for 40 years half a pack a day #8. Osteoarthritis #9. Hypothyroidism #10. Diverticular disease #11. Large draining boil on upper back, and surgery will be consulted. Plan: Continue current medical treatment, continue hydroxychloroquine, Augmentin, vital signs are stable, patient is on room air, she is still complaining of some coughing, and fatigue, her cultures remain negative, no fever or chills, she could consider for discharge home in the next 24 hours, I performed a history & physical examination of the patient and discussed their management with my nurse practitioner, Chery Bell. I reviewed the nurse practitioner's note and agree with the documented findings and plan of care. Lung sounds are positive for diffuse wheezes throughout the lung stinson. The findings and the impression was discussed with the patient. I attest to the documentation by the nurse practitioner. Time with Patient: Less than 30
[2020-01-15 17:27] LABS: Glucose,Whole Blood 95 mg/dL (75-99)
[2020-01-15 21:20] LABS: Glucose,Whole Blood 103 mg/dL (75-99)
[2020-01-15] MEDS: ATORVASTATIN 40 MG TAB PO SCH (22:03)
[2020-01-15] MEDS: ALPRAZolam 0.5 MG TAB PO PRN (22:03)
[2020-01-16] MEDS: ALBUTEROL INHALER 60 PUFF/8 GM INHALER (BULK) INHALATION SCH ×7 (00:41→23:33)
[2020-01-16 06:13] LABS: Glucose,Whole Blood 97 mg/dL (75-99)
[2020-01-16] MEDS: INSULIN ASPART (NovoLOG) 100 UNIT/ML VIAL SQ SCH ×4 (06:23→22:17)
[2020-01-16] MEDS: LEVOTHYROXINE 88 MCG TAB PO SCH (06:25)
[2020-01-16] MEDS: SYMBICORT 80-4.5 MCG INHALER INHALATION SCH ×2 (08:52→19:58)
[2020-01-16] MEDS: TIOTROPIUM 18 MCG/PUFF INHALER INHALATION SCH (08:53)
[2020-01-16] MEDS: MULTIVITAMINS, THERA 1 EACH TAB PO SCH (09:51)
[2020-01-16] MEDS: ASPIRIN 81 MG PO SCH (09:51)
[2020-01-16] MEDS: HYDROXYCHLOROQUINE SULFATE 200 MG TAB PO SCH ×2 (09:51→21:56)
[2020-01-16] MEDS: LISINOPRIL 20 MG TAB PO SCH (09:51)
[2020-01-16] MEDS: AMOXIC-POT CLAV 875-125MG 1 EACH TAB PO SCH ×2 (09:51→21:56)
[2020-01-16] MEDS: VERAPAMIL 40 MG TAB PO SCH ×3 (09:51→21:56)
[2020-01-16] MEDS: DOCUSATE 100 MG CAP PO SCH ×2 (10:13→22:17)
[2020-01-16 12:11] LABS: Glucose,Whole Blood 107 mg/dL (75-99)
[2020-01-16] MEDS: ACETAMINOPHEN TAB 325 MG TAB PO PRN (13:02)
--- NOTE | 2020-01-16 14:31 | P.PN ---
Subjective Progress Note Date: 01/16/20 Principal diagnosis: Acute hypoxic respiratory failure secondary to an acute exacerbation of COPD and CoVID 19 infection 79-year-old white female patient of Dr. Smith, with past medical history of COPD, hypertension, chronic atrial fibrillation, previous history of CVA/TIA, hy pothyroidism, current every day smoker, smokes half a pack a day for the past 40 years, who presented to the emergency department per EMS on 01/12/2020, for evaluation of increasing shortness of breath that started yesterday. patient did have fevers at home. She states she has been at home under stable home order since December 21. She does have family members that tested positive for Covid 19 however they have been and self-isolation and have not had any contact with the patient says before December 21. She states she called her [id number] who did test positive for Covid 19 this morning to transport her to the hospital however upon further thought she changed her mind and called the ambulance. Patient had not taken her usual medications this morning, her blood pressure on arrival was 220/120, she was in A. fib RVR with a rate of 1:30 BPM, she denies any fevers, denies any nausea vomiting, denies any diaphoresis, no chest pain. Patient was bronchospastic, dyspneic, with audible wheezing. EKG showed A. fib RVR, with nonspecific ST-T wave configuration. Chest x-ray showed COPD, chronic appearing changes, and no definite acute process. Lab work has been reviewed showing white blood cell count 11.0, 11 of 14.1, coagulation profile was within normal limits, d-dimer was not checked yet, a lecture lites are within normal limits, BUN is 21 creatinine 0.92, lactic acid is 0.8, LFTs were within normal limits, troponin was less than 0.012, proBNP was within normal limits at 202, influenza screen was negative. COVID 19 testing has been ordered in in progress, pro- calcitonin this pending, d-dimer has been ordered, cardiology has evaluated the patient, determined that patient was in sinus tachycardia, nevertheless patient was started on heparin infusion for anticoagulation. On 01/13/2020 patient seen in follow-up on selective care unit, she is feeling better today, breathing easier, her pulse ox is 94%, hemodynamically patient is stable, she's been afebrile, respirations are nonlabored, no tachypnea, no dyspnea, vital signs are stable, no complaints of chest pain. No significant cough or congestion. Lung sounds are diminished to auscultation, no rhonchi or wheezing. Her Covid 19 testing still pending, Procalcitonin level was low at 0.11. Patient is on IV steroids, she is on inhalers including Spiriva, Symbicort and albuterol, a much easier today, she had a surgical evaluation for her incision and drainage on her upper back. Is on antibiotics using Unasyn and Zithromax On 01/15/2020 patient seen in follow-up on selective care unit, she is calm and comfortable, sitting up on the edge of the bed, room air pulse ox is 91%, she is afebrile, she states she still has the fatigue and the coughing, but seems to be in no acute distress, lung sounds are diminished, no rhonchi, no wheezing, no febrile episodes overnight, patient is being treated with hydroxychloroquine, and Augmentin, her wound cultures are negative thus far, anaerobic cultures are still pending, clinically stable, labs have been reviewed, showing limits oh, and trending down down to 17.4, hemoglobin of 10.8, The patient is seen today 01/16/2020 in follow-up on the selective care unit. She is currently sitting up in bed. Awake and alert in no acute distress. No worsening shortness of breath, cough or congestion. She is maintaining O2 saturations in the 90s on room air. She's afebrile. Hemodynamically stable. Wound culture is pending. She is continued on Symbicort, Spiriva and albuterol. She was found to be CoVID 19 positive and remains on Plaquenil. Objective - Vital Signs Vital signs: Vital Signs Temp 98.3 F 01/16/20 09:45 Pulse 77 01/16/20 09:45 Resp 22 01/16/20 09:45 BP 140/74 01/16/20 09:45 Pulse Ox 92 L 01/16/20 09:45 Intake & Output 01/15/20 01/16/20 01/16/20 18:59 06:59 18:59 Intake Total 950 240 960 Output Total 1400 Balance 950 -1160 960 Weight 76.4 kg Intake: Oral 950 240 960 Output: Urine 1400 Other: Voiding Method Toilet Toilet # Voids 1 1 1 # Bowel Movements 1 - Exam GENERAL EXAM: Alert, very pleasant, 71-year-old white female, on room air with a pulse ox of 92%. No acute distress. HEAD: Normocephalic/atraumatic. EYES: Normal reaction of pupils, equal size. Conjunctiva pink, sclera white. NOSE: Clear with pink turbinates. THROAT: No erythema or exudates. NECK: No masses, no JVD, no thyroid enlargement, no adenopathy. CHEST: No chest wall deformity. Symmetrical expansion. LUNGS: Equal air entry with diminished breath sounds bilaterally, no rhonchi, no wheezing. CVS: Regular rate and rhythm, normal S1 and S2, no gallops, no murmurs, no rubs ABDOMEN: Soft, nontender. No hepatosplenomegaly, normal bowel sounds, no guarding or rigidity. EXTREMITIES: No clubbing, no edema, no cyanosis, 2+ pulses and upper and lower extremities. MUSCULOSKELETAL: Muscle strength and tone normal. SPINE: No scoliosis or deformity SKIN: a large draining boil noted on upper back, draining purulent drainage CENTRAL NERVOUS SYSTEM: Alert and oriented -3. No focal deficits, tone is normal in all 4 extremities. PSYCHIATRIC: Alert and oriented -3. Appropriate affect. Intact judgment and insight. - Labs CBC & Chem 7: 01/15/20 06:23 01/14/20 06:46 Labs: Abnormal Lab Results - Last 24 Hours (Table) 01/15/20 01/16/20 Range/Units 21:19 11:36 POC Glucose (mg/dL) 103 H 107 H (75-99) mg/dL Assessment and Plan Assessment: #1. Acute hypoxic rest or a failure related to acute exacerbation of COPD, with positive Covid 19 infection, patient has been tested and the results are pending at this time. Reports some fevers and cough, shortness of breath at home #2. A. fib with RVR on presentation, patient has been evaluated by cardiology, and it was determined the patient was in sinus tachycardia, currently on Cardizem drip and heparin for anticoagulation #3. Chronic obstructive pulmonary disease #4. Hypertensive urgency on presentation improved. Chest x-ray did not show any definite evidence of pulmonary edema #5. Previous history of CVA/TIA #6. Anxiety #7. Chronic and ongoing nicotine dependence, smoked for 40 years half a pack a day #8. Osteoarthritis #9. Hypothyroidism #10. Diverticular disease #11. Large draining boil on upper back, cultures pending Plan: The patient was seen and evaluated by Dr. Giraldo Continue Plaquenil Continue Augmentin Continue Symbicort, Spiriva, albuterol On room air Home once cleared medically I, the cosigning physician, performed a history & physical examination of the patient. Lungs sounds are clear, diminished. Maintaining good O2 saturations in the 90s on room air. I discussed the assessment and plan of care with my nurse practitioner, Sammie Thorpe. I attest to the above note as dictated by her.
[2020-01-16 16:15] LABS: Glucose,Whole Blood 101 mg/dL (75-99)
[2020-01-16 20:13] LABS: Glucose,Whole Blood 101 mg/dL (75-99)
[2020-01-16] MEDS: ATORVASTATIN 40 MG TAB PO SCH (21:56)
[2020-01-16] MEDS: ALPRAZolam 0.5 MG TAB PO PRN (21:56)
--- NOTE | 2020-01-16 23:25 | P.PN ---
Subjective Progress Note Date: 01/15/20 Principal diagnosis: COPD exacerbation Patient is a 79-year-old female with known history of COPD, previous history of smoking, history of TIA/CVA, hypertension, hyperlipidemia, osteoarthritis and anxiety and questionable history of atrial fibrillation currently not on any anticoagulation at home came to ER with the complaints of shortness of breath which is getting worse since yesterday. Patient says that she's been having cough for the past 2 weeks and subjective fevers at home. Patient also did not take her medications today morning. Her blood pressure was elevated with SBP greater than 220 on admission. Patient was also tachycardic and tachypneic and also hypoxic on admission. Patient was febrile in the hospital. Denied any nausea vomiting or diarrhea or abdominal pain. No complaints of chest pain. Patient does have headache but no dizziness or lightheadedness. Denied any sick contacts or recent travel. EKG showed atrial fibrillation with rapid ventricular rate on admission and was started on Cardizem drip and heparin drip. Chest x-ray showed COPD with chronic appearing changes. Laboratory data showed pelvis 11.0, hemoglobin 14.1, platelets 317, sodium 140, potassium 4.8, BUN 21 and creatinine 0.9 and troponin 0.012 Patient was seen by cardiology. After reviewing EKG, patient was found to be in sinus tachycardia on admission. D-dimer was ordered. 01/13/2020 Patient is currently lying in the bed comfortably. Shortness of breath is improving. CT angiogram is negative for pulmonary embolism. Currently being continued on IV steroids, DuoNeb's and Symbicort. Antibiotics in the form of Unasyn and azithromycin. Covid 19 testing is pending. Denied any significant cough today. Patient has been afebrile. No complaints of chest pain. No nausea vomiting or abdominal pain. No diarrhea no. Tolerating oral diet. Cultures have been negative so far. Patient is status post I&D of infected sebaceous cyst on the back. 01/14/2020 Patient is awake and alert oriented 3. Breathing status is improving. The sleep with ambulation. Patient is positive for Covid 19. Denied any significant cough. Patient is afebrile. Continued on breathing treatments. Was started on hydroxychloroquine. Antibiotics changed to Augmentin. Steroids have been discontinued. No complex of chest pain. No nausea vomiting or abdominal pain or diarrhea. 01/15/2020 Patient is currently lying in the bed comfortably. Still having exertional dyspnea and not feeling very well. Bilateral diminished air entry. No wheezing or rhonchi. Patient has been afebrile overnight. Currently being converted on hydroxychloroquine and Augmentin. Cultures have been negative so far. WBC 17.4 and hemoglobin 10.8 Denied any complaints of nausea vomiting. Does have some headache. No abdominal pain or diarrhea. Current medications reviewed. Objective - Vital Signs Vital signs: Vital Signs Temp 97.4 F L 01/15/20 11:50 Pulse 76 01/15/20 11:50 Resp 16 01/15/20 11:55 BP 132/71 01/15/20 11:50 Pulse Ox 91 L 01/15/20 11:50 Intake & Output 01/14/20 01/15/20 01/15/20 18:59 06:59 18:59 Intake Total 900 440 240 Output Total 700 700 Balance 200 -260 240 Weight 75 kg Intake: Oral 900 440 240 Output: Urine 700 700 Other: Voiding Method Bedpan Toilet # Voids 1 2 # Bowel Movements 1 - Exam PHYSICAL EXAMINATION: Patient is lying in the bed comfortably, no acute distress, awake alert and oriented.. HEENT: Normocephalic. Neck is supple. Pupils reactive. Nostrils clear. Oral cavity is moist. Ears reveal no drainage. Neck reveals no JVD, carotid bruits, or thyromegaly. CHEST EXAMINATION: Trachea is central. Symmetrical expansion. Minimal expiratory wheezing and improved air entry. CARDIAC: Normal S1, S2 with no gallops. No murmurs ABDOMEN: Soft. Bowel sounds normal. No organomegaly. No abdominal bruits. Extremities: reveal no edema. No clubbing or cyanosis Neurologically awake, alert, oriented x3 with well-coordinated movements. No focal deficits noted Skin: No rash or skin lesions. Psychiatric: Coperative. Nonsuicidal Musculoskeletal: No joint swelling or deformity. Normal range of motion. - Labs CBC & Chem 7: 01/15/20 06:23 01/14/20 06:46 Labs: Abnormal Lab Results - Last 24 Hours (Table) 01/14/20 01/14/20 01/15/20 Range/Units 16:38 20:25 06:23 WBC 17.4 H (3.8-10.6) k/uL RBC 3.37 L (3.80-5.40) m/uL Hgb 10.8 L (11.4-16.0) gm/dL Hct 33.1 L (34.0-46.0) % Neutrophils # 15.0 H (1.3-7.7) k/uL POC Glucose (mg/dL) 147 H 154 H (75-99) mg/dL Microbiology - Last 24 Hours (Table) 01/12/20 15:55 Gram Stain - Final Back Wound Culture - Final Assessment and Plan Assessment: Acute Covid 19 viral infection Acute hypoxic respiratory failure secondary to above Suspected COVID 19 infection due to subjective fevers, shortness of breath and dry cough for the past 2 weeks Acute COPD exacerbation Hypertensive urgency on admission Questionable atrial fibrillation with rapid ventricular rate. Seem by cardiology and thought to be sinus tachycardia upon review of EKG. Sebaceous cyst on the back. Status post I&D. Rule out pulmonary embolism History of GERD Hypertension Hyperlipidemia Osteoarthritis Hypothyroidism History of CVA/TIA in 2013 Previous history of smoking Plan: Patient will be continued on DuoNeb's and Symbicort. Oxygen THERAPY NEEDED. PATIENT WAS GIVEN gentle hydration. Continue with telemetry monitoring. Cardizem has been discontinued. Patient was started on the verapamil.. D-dimer was ordered to rule out pulmonary embolism which is elevated. CT angiogram is negative for PE. Continue with blood pressure medications and follow closely. Patient is currently on contact and Doppler precautions due to cOVID 19 viral infection. Anticipate discharge in the next 24 hours with more clinical improvement. Titrate oxygen to room air. Time with Patient: Greater than 30
--- NOTE | 2020-01-16 23:27 | P.PN ---
Subjective Progress Note Date: 01/16/20 Principal diagnosis: COPD exacerbation Patient is a 79-year-old female with known history of COPD, previous history of smoking, history of TIA/CVA, hypertension, hyperlipidemia, osteoarthritis and anxiety and questionable history of atrial fibrillation currently not on any anticoagulation at home came to ER with the complaints of shortness of breath which is getting worse since yesterday. Patient says that she's been having cough for the past 2 weeks and subjective fevers at home. Patient also did not take her medications today morning. Her blood pressure was elevated with SBP greater than 220 on admission. Patient was also tachycardic and tachypneic and also hypoxic on admission. Patient was febrile in the hospital. Denied any nausea vomiting or diarrhea or abdominal pain. No complaints of chest pain. Patient does have headache but no dizziness or lightheadedness. Denied any sick contacts or recent travel. EKG showed atrial fibrillation with rapid ventricular rate on admission and was started on Cardizem drip and heparin drip. Chest x-ray showed COPD with chronic appearing changes. Laboratory data showed pelvis 11.0, hemoglobin 14.1, platelets 317, sodium 140, potassium 4.8, BUN 21 and creatinine 0.9 and troponin 0.012 Patient was seen by cardiology. After reviewing EKG, patient was found to be in sinus tachycardia on admission. D-dimer was ordered. 01/13/2020 Patient is currently lying in the bed comfortably. Shortness of breath is improving. CT angiogram is negative for pulmonary embolism. Currently being continued on IV steroids, DuoNeb's and Symbicort. Antibiotics in the form of Unasyn and azithromycin. Covid 19 testing is pending. Denied any significant cough today. Patient has been afebrile. No complaints of chest pain. No nausea vomiting or abdominal pain. No diarrhea no. Tolerating oral diet. Cultures have been negative so far. Patient is status post I&D of infected sebaceous cyst on the back. 01/14/2020 Patient is awake and alert oriented 3. Breathing status is improving. The sleep with ambulation. Patient is positive for Covid 19. Denied any significant cough. Patient is afebrile. Continued on breathing treatments. Was started on hydroxychloroquine. Antibiotics changed to Augmentin. Steroids have been discontinued. No complex of chest pain. No nausea vomiting or abdominal pain or diarrhea. 01/15/2020 Patient is currently lying in the bed comfortably. Still having exertional dyspnea and not feeling very well. Bilateral diminished air entry. No wheezing or rhonchi. Patient has been afebrile overnight. Currently being converted on hydroxychloroquine and Augmentin. Cultures have been negative so far. WBC 17.4 and hemoglobin 10.8 Denied any complaints of nausea vomiting. Does have some headache. No abdominal pain or diarrhea. 01/16/2020 Patient is currently lying in the bed. Denied any complains of chest pain or worsening shortness of breath. Saturating around 91-92% on room air at rest area did still feels dyspneic with ambulation and also generalized weakness and tiredness. Currently being continued on hydroxychloroquine and antibiotics in the form of Augmentin. Continue with breathing treatments. Patient has been afebrile. Anticipate discharge next 24 hours with morphine improvement. Encourage ambulation. Tolerating oral diet. Current medications reviewed. Objective - Vital Signs Vital signs: Vital Signs Temp 98.5 F 01/16/20 15:45 Pulse 89 01/16/20 20:00 Resp 18 01/16/20 20:00 BP 113/63 01/16/20 19:22 Pulse Ox 96 01/16/20 19:22 Intake & Output 01/16/20 01/16/20 01/17/20 06:59 18:59 06:59 Intake Total 240 1200 480 Output Total 1400 Balance -1160 1200 480 Weight 76.4 kg Intake: Oral 240 1200 480 Output: Urine 1400 Other: Voiding Method Toilet Toilet Toilet # Voids 1 3 1 # Bowel Movements 1 - Exam PHYSICAL EXAMINATION: Patient is lying in the bed comfortably, no acute distress, awake alert and oriented.. HEENT: Normocephalic. Neck is supple. Pupils reactive. Nostrils clear. Oral cavity is moist. Ears reveal no drainage. Neck reveals no JVD, carotid bruits, or thyromegaly. CHEST EXAMINATION: Trachea is central. Symmetrical expansion. Minimal expiratory wheezing and improved air entry. CARDIAC: Normal S1, S2 with no gallops. No murmurs ABDOMEN: Soft. Bowel sounds normal. No organomegaly. No abdominal bruits. Extremities: reveal no edema. No clubbing or cyanosis Neurologically awake, alert, oriented x3 with well-coordinated movements. No focal deficits noted Skin: No rash or skin lesions. Psychiatric: Coperative. Nonsuicidal Musculoskeletal: No joint swelling or deformity. Normal range of motion. - Labs CBC & Chem 7: 01/15/20 06:23 01/14/20 06:46 Labs: Abnormal Lab Results - Last 24 Hours (Table) 01/16/20 01/16/20 01/16/20 Range/Units 11:36 16:09 20:11 POC Glucose (mg/dL) 107 H 101 H 101 H (75-99) mg/dL Microbiology - Last 24 Hours (Table) 01/12/20 15:55 Anaerobic Culture - Final Back Assessment and Plan Assessment: Acute Covid 19 viral infection Acute hypoxic respiratory failure secondary to above Suspected COVID 19 infection due to subjective fevers, shortness of breath and dry cough for the past 2 weeks Acute COPD exacerbation Hypertensive urgency on admission Questionable atrial fibrillation with rapid ventricular rate. Seem by cardiology and thought to be sinus tachycardia upon review of EKG. Sebaceous cyst on the back. Status post I&D. Rule out pulmonary embolism History of GERD Hypertension Hyperlipidemia Osteoarthritis Hypothyroidism History of CVA/TIA in 2013 Previous history of smoking Plan: Patient will be continued on DuoNeb's and Symbicort. Oxygen THERAPY NEEDED. PATIENT WAS GIVEN gentle hydration. Continue with telemetry monitoring. Cardizem has been discontinued. Patient was started on the verapamil.. D-dimer was ordered to rule out pulmonary embolism which is elevated. CT angiogram is negative for PE. Continue with blood pressure medications and follow closely. Patient is currently on contact and Doppler precautions due to cOVID 19 viral infection. Anticipate discharge in the next 24 hours with more clinical improvement. Titrate oxygen to room air. Time with Patient: Greater than 30
[2020-01-17] MEDS: ALBUTEROL INHALER 60 PUFF/8 GM INHALER (BULK) INHALATION SCH ×5 (03:51→20:33)
[2020-01-17 06:17] LABS: Glucose,Whole Blood 91 mg/dL (75-99)
[2020-01-17] MEDS: INSULIN ASPART (NovoLOG) 100 UNIT/ML VIAL SQ SCH ×4 (06:25→21:00)
[2020-01-17 06:48] LABS: Basophils % (A) 0 %; Eosinophils # (A) 0.8 k/uL (0-0.7); Eosinophils % (A) 9 %; HCT 39.5 % (34.0-46.0); HGB 12.5 gm/dL (11.4-16.0); Lymphocytes # (A) 1.9 k/uL (1.0-4.8); Lymphocytes % (A) 22 %; MCH 31.4 pg (25.0-35.0); MCHC 31.5 g/dL (31.0-37.0); MCV 99.6 fL (80.0-100.0); Mean Platelet Volume 7.7; Monocytes # (A) 0.5 k/uL (0-1.0); Monocytes % (A) 6 %; Neutrophils # (A) 5.2 k/uL (1.3-7.7); Neutrophils % (A) 61 %; Platelet Count 254 k/uL (150-450); RBC 3.96 m/uL (3.80-5.40); RDW 13.4 % (11.5-15.5); WBC 8.6 k/uL (3.8-10.6)
[2020-01-17 06:51] LABS: Calcium 8.9 mg/dL (8.4-10.2); Potassium 4.5 mmol/L (3.5-5.1)
[2020-01-17] MEDS: LEVOTHYROXINE 88 MCG TAB PO SCH (07:00)
[2020-01-17] MEDS: TIOTROPIUM 18 MCG/PUFF INHALER INHALATION SCH (07:25)
[2020-01-17] MEDS: SYMBICORT 80-4.5 MCG INHALER INHALATION SCH ×2 (07:25→20:33)
[2020-01-17] MEDS: HYDROXYCHLOROQUINE SULFATE 200 MG TAB PO SCH ×2 (08:35→21:24)
[2020-01-17] MEDS: LISINOPRIL 20 MG TAB PO SCH (08:35)
[2020-01-17] MEDS: ASPIRIN 81 MG PO SCH (08:35)
[2020-01-17] MEDS: AMOXIC-POT CLAV 875-125MG 1 EACH TAB PO SCH ×2 (08:35→21:24)
[2020-01-17] MEDS: MULTIVITAMINS, THERA 1 EACH TAB PO SCH (08:35)
[2020-01-17] MEDS: VERAPAMIL 40 MG TAB PO SCH ×3 (08:35→21:24)
[2020-01-17] MEDS: DOCUSATE 100 MG CAP PO SCH ×2 (08:40→21:24)
[2020-01-17 11:44] LABS: Glucose,Whole Blood 91 mg/dL (75-99)
--- NOTE | 2020-01-17 14:57 | P.PN ---
Subjective Progress Note Date: 01/17/20 Principal diagnosis: Acute hypoxic respiratory failure secondary to an acute exacerbation of COPD and CoVID 19 infection 79-year-old white female patient of Dr. Smith, with past medical history of COPD, hypertension, chronic atrial fibrillation, previous history of CVA/TIA, hy pothyroidism, current every day smoker, smokes half a pack a day for the past 40 years, who presented to the emergency department per EMS on 01/12/2020, for evaluation of increasing shortness of breath that started yesterday. patient did have fevers at home. She states she has been at home under stable home order since December 21. She does have family members that tested positive for Covid 19 however they have been and self-isolation and have not had any contact with the patient says before December 21. She states she called her [id number] who did test positive for Covid 19 this morning to transport her to the hospital however upon further thought she changed her mind and called the ambulance. Patient had not taken her usual medications this morning, her blood pressure on arrival was 220/120, she was in A. fib RVR with a rate of 1:30 BPM, she denies any fevers, denies any nausea vomiting, denies any diaphoresis, no chest pain. Patient was bronchospastic, dyspneic, with audible wheezing. EKG showed A. fib RVR, with nonspecific ST-T wave configuration. Chest x-ray showed COPD, chronic appearing changes, and no definite acute process. Lab work has been reviewed showing white blood cell count 11.0, 11 of 14.1, coagulation profile was within normal limits, d-dimer was not checked yet, a lecture lites are within normal limits, BUN is 21 creatinine 0.92, lactic acid is 0.8, LFTs were within normal limits, troponin was less than 0.012, proBNP was within normal limits at 202, influenza screen was negative. COVID 19 testing has been ordered in in progress, pro- calcitonin this pending, d-dimer has been ordered, cardiology has evaluated the patient, determined that patient was in sinus tachycardia, nevertheless patient was started on heparin infusion for anticoagulation. On 01/13/2020 patient seen in follow-up on selective care unit, she is feeling better today, breathing easier, her pulse ox is 94%, hemodynamically patient is stable, she's been afebrile, respirations are nonlabored, no tachypnea, no dyspnea, vital signs are stable, no complaints of chest pain. No significant cough or congestion. Lung sounds are diminished to auscultation, no rhonchi or wheezing. Her Covid 19 testing still pending, Procalcitonin level was low at 0.11. Patient is on IV steroids, she is on inhalers including Spiriva, Symbicort and albuterol, a much easier today, she had a surgical evaluation for her incision and drainage on her upper back. Is on antibiotics using Unasyn and Zithromax On 01/15/2020 patient seen in follow-up on selective care unit, she is calm and comfortable, sitting up on the edge of the bed, room air pulse ox is 91%, she is afebrile, she states she still has the fatigue and the coughing, but seems to be in no acute distress, lung sounds are diminished, no rhonchi, no wheezing, no febrile episodes overnight, patient is being treated with hydroxychloroquine, and Augmentin, her wound cultures are negative thus far, anaerobic cultures are still pending, clinically stable, labs have been reviewed, showing limits oh, and trending down down to 17.4, hemoglobin of 10.8, The patient is seen today 01/16/2020 in follow-up on the selective care unit. She is currently sitting up in bed. Awake and alert in no acute distress. No worsening shortness of breath, cough or congestion. She is maintaining O2 saturations in the 90s on room air. She's afebrile. Hemodynamically stable. Wound culture is pending. She is continued on Symbicort, Spiriva and albuterol. She was found to be CoVID 19 positive and remains on Plaquenil. Patient is seen today 01/17/2020 in follow-up on the selective care unit. She is awake and alert in no acute distress. No worsening shortness of breath, cough or congestion. Maintaining O2 saturations in the mid 90s on room air She's been afebrile. Hemodynamically stable. Blood cultures from the back revealed no growth. White count 8.6. Hemoglobin 12.5. Creatinine 1.12. Remains on Symbicort, Spiriva and albuterol. Antibiotics in the form of Augmentin. Continue and on Plaquenil. Objective - Vital Signs Vital signs: Vital Signs Temp 98.4 F 01/17/20 12:05 Pulse 71 01/17/20 12:05 Resp 16 01/17/20 12:05 BP 136/71 01/17/20 12:05 Pulse Ox 95 01/17/20 12:05 Intake & Output 01/16/20 01/17/20 01/17/20 18:59 06:59 18:59 Intake Total 1200 480 480 Output Total 700 Balance 1200 -220 480 Weight 74.8 kg Intake: Oral 1200 480 480 Output: Urine 700 Other: Voiding Method Toilet Toilet Toilet # Voids 3 1 1 # Bowel Movements 1 - Exam GENERAL EXAM: Alert, very pleasant, 71-year-old white female, on room air with a pulse ox of 95%. No acute distress. HEAD: Normocephalic/atraumatic. EYES: Normal reaction of pupils, equal size. Conjunctiva pink, sclera white. NOSE: Clear with pink turbinates. THROAT: No erythema or exudates. NECK: No masses, no JVD, no thyroid enlargement, no adenopathy. CHEST: No chest wall deformity. Symmetrical expansion. LUNGS: Equal air entry with diminished breath sounds bilaterally, no rhonchi, no wheezing. CVS: Regular rate and rhythm, normal S1 and S2, no gallops, no murmurs, no rubs ABDOMEN: Soft, nontender. No hepatosplenomegaly, normal bowel sounds, no guarding or rigidity. EXTREMITIES: No clubbing, no edema, no cyanosis, 2+ pulses and upper and lower extremities. MUSCULOSKELETAL: Muscle strength and tone normal. SPINE: No scoliosis or deformity SKIN: a large draining boil noted on upper back, draining purulent drainage CENTRAL NERVOUS SYSTEM: No focal deficits, tone is normal in all 4 extremities. PSYCHIATRIC: Alert and oriented -3. Appropriate affect. Intact judgment and insight. - Labs CBC & Chem 7: 01/17/20 06:27 01/17/20 06:27 Labs: Abnormal Lab Results - Last 24 Hours (Table) 01/16/20 01/16/20 01/17/20 Range/Units 16:09 20:11 06:27 Eosinophils # 0.8 H (0-0.7) k/uL Sodium (137-145) mmol/L Carbon Dioxide (22-30) mmol/L BUN (7-17) mg/dL Creatinine (0.52-1.04) mg/dL POC Glucose (mg/dL) 101 H 101 H (75-99) mg/dL 01/17/20 Range/Units 06:27 Eosinophils # (0-0.7) k/uL Sodium 135 L (137-145) mmol/L Carbon Dioxide 31 H (22-30) mmol/L BUN 28 H (7-17) mg/dL Creatinine 1.12 H (0.52-1.04) mg/dL POC Glucose (mg/dL) (75-99) mg/dL Microbiology - Last 24 Hours (Table) 01/12/20 15:55 Anaerobic Culture - Final Back Assessment and Plan Assessment: #1. Acute hypoxic rest or a failure related to acute exacerbation of COPD, with positive Covid 19 infection #2. A. fib with RVR on presentation, patient has been evaluated by cardiology, and it was determined the patient was in sinus tachycardia, currently on Cardizem drip and heparin for anticoagulation #3. Chronic obstructive pulmonary disease #4. Hypertensive urgency on presentation improved. Chest x-ray did not show any definite evidence of pulmonary edema #5. Previous history of CVA/TIA #6. Anxiety #7. Chronic and ongoing nicotine dependence, smoked for 40 years half a pack a day #8. Osteoarthritis #9. Hypothyroidism #10. Diverticular disease #11. Large draining boil on upper back, cultures negative Plan: The patient was seen and evaluated by Dr. Giraldo Complete 5 days of Plaquenil Continue Augmentin Continue Symbicort, Spiriva, albuterol On room air Cleared for discharge from pulmonary standpoint I, the cosigning physician, performed a history & physical examination of the patient. Lungs sounds are clear, diminished. Maintaining good O2 saturations in the 90s on room air. I discussed the assessment and plan of care with my nurse practitioner, Sammie Thorpe. I attest to the above note as dictated by her.
[2020-01-17 16:48] LABS: Glucose,Whole Blood 104 mg/dL (75-99)
[2020-01-17 18:00] VITALS: RESP 18
[2020-01-17 21:14] LABS: Glucose,Whole Blood 111 mg/dL (75-99)
[2020-01-17] MEDS: ATORVASTATIN 40 MG TAB PO SCH (21:24)
[2020-01-17] MEDS ORDERED: BENZOCAINE/MENTHOL LOZENG 1 EACH LOZENGE MUCOUS MEM PRN (21:40)
[2020-01-17] MEDS: ALPRAZolam 0.5 MG TAB PO PRN (22:23)
[2020-01-17] MEDS ORDERED: SODIUM CHLORIDE 0.9% 1,000 ML IV SCH (23:45)
--- NOTE | 2020-01-18 00:18 | P.PN ---
Subjective Progress Note Date: 01/17/20 Principal diagnosis: COPD exacerbation Patient is a 79-year-old female with known history of COPD, previous history of smoking, history of TIA/CVA, hypertension, hyperlipidemia, osteoarthritis and anxiety and questionable history of atrial fibrillation currently not on any anticoagulation at home came to ER with the complaints of shortness of breath which is getting worse since yesterday. Patient says that she's been having cough for the past 2 weeks and subjective fevers at home. Patient also did not take her medications today morning. Her blood pressure was elevated with SBP greater than 220 on admission. Patient was also tachycardic and tachypneic and also hypoxic on admission. Patient was febrile in the hospital. Denied any nausea vomiting or diarrhea or abdominal pain. No complaints of chest pain. Patient does have headache but no dizziness or lightheadedness. Denied any sick contacts or recent travel. EKG showed atrial fibrillation with rapid ventricular rate on admission and was started on Cardizem drip and heparin drip. Chest x-ray showed COPD with chronic appearing changes. Laboratory data showed pelvis 11.0, hemoglobin 14.1, platelets 317, sodium 140, potassium 4.8, BUN 21 and creatinine 0.9 and troponin 0.012 Patient was seen by cardiology. After reviewing EKG, patient was found to be in sinus tachycardia on admission. D-dimer was ordered. 01/13/2020 Patient is currently lying in the bed comfortably. Shortness of breath is improving. CT angiogram is negative for pulmonary embolism. Currently being continued on IV steroids, DuoNeb's and Symbicort. Antibiotics in the form of Unasyn and azithromycin. Covid 19 testing is pending. Denied any significant cough today. Patient has been afebrile. No complaints of chest pain. No nausea vomiting or abdominal pain. No diarrhea no. Tolerating oral diet. Cultures have been negative so far. Patient is status post I&D of infected sebaceous cyst on the back. 01/14/2020 Patient is awake and alert oriented 3. Breathing status is improving. The sleep with ambulation. Patient is positive for Covid 19. Denied any significant cough. Patient is afebrile. Continued on breathing treatments. Was started on hydroxychloroquine. Antibiotics changed to Augmentin. Steroids have been discontinued. No complex of chest pain. No nausea vomiting or abdominal pain or diarrhea. 01/15/2020 Patient is currently lying in the bed comfortably. Still having exertional dyspnea and not feeling very well. Bilateral diminished air entry. No wheezing or rhonchi. Patient has been afebrile overnight. Currently being converted on hydroxychloroquine and Augmentin. Cultures have been negative so far. WBC 17.4 and hemoglobin 10.8 Denied any complaints of nausea vomiting. Does have some headache. No abdominal pain or diarrhea. 01/16/2020 Patient is currently lying in the bed. Denied any complains of chest pain or worsening shortness of breath. Saturating around 91-92% on room air at rest area did still feels dyspneic with ambulation and also generalized weakness and tiredness. Currently being continued on hydroxychloroquine and antibiotics in the form of Augmentin. Continue with breathing treatments. Patient has been afebrile. Anticipate discharge next 24 hours with morphine improvement. Encourage ambulation. Tolerating oral diet. 01/17/2020 Patient is awake alert and lingin the bed comfortably. Patient says that she is feeling very weak and nauseated this morning and about to fall while she was going to the bathroom. No complaints of chest pain or worsening shortness of breath. Currently on room air in mid . Cultures have been negative. BUN 28 and creatinine 1.12. Otherwise patient is being continued on antibiotics in the form of Augmentin and also on Plaquenil. Continued on breathing treatments. Anticipate discharge tomorrow. Current medications reviewed. Objective - Vital Signs Vital signs: Vital Signs Temp 98.1 F 01/17/20 20:00 Pulse 88 01/17/20 20:00 Resp 18 01/17/20 20:00 BP 129/81 01/17/20 20:00 Pulse Ox 98 01/17/20 20:00 Intake & Output 01/17/20 01/17/20 01/18/20 06:59 18:59 06:59 Intake Total 480 720 Output Total 700 Balance -220 720 Weight 74.8 kg Intake: Oral 480 720 Output: Urine 700 Other: Voiding Method Toilet Toilet Toilet # Voids 1 1 # Bowel Movements 1 1 - Exam PHYSICAL EXAMINATION: Patient is lying in the bed comfortably, no acute distress, awake alert and oriented.. HEENT: Normocephalic. Neck is supple. Pupils reactive. Nostrils clear. Oral cavity is moist. Ears reveal no drainage. Neck reveals no JVD, carotid bruits, or thyromegaly. CHEST EXAMINATION: Trachea is central. Symmetrical expansion. Minimal expiratory wheezing and improved air entry. CARDIAC: Normal S1, S2 with no gallops. No murmurs ABDOMEN: Soft. Bowel sounds normal. No organomegaly. No abdominal bruits. Extremities: reveal no edema. No clubbing or cyanosis Neurologically awake, alert, oriented x3 with well-coordinated movements. No focal deficits noted Skin: No rash or skin lesions. Psychiatric: Coperative. Nonsuicidal Musculoskeletal: No joint swelling or deformity. Normal range of motion. - Labs CBC & Chem 7: 01/17/20 06:27 01/17/20 06:27 Labs: Abnormal Lab Results - Last 24 Hours (Table) 01/17/20 01/17/20 01/17/20 Range/Units 06:27 06:27 16:44 Eosinophils # 0.8 H (0-0.7) k/uL Sodium 135 L (137-145) mmol/L Carbon Dioxide 31 H (22-30) mmol/L BUN 28 H (7-17) mg/dL Creatinine 1.12 H (0.52-1.04) mg/dL POC Glucose (mg/dL) 104 H (75-99) mg/dL 01/17/20 Range/Units 20:50 Eosinophils # (0-0.7) k/uL Sodium (137-145) mmol/L Carbon Dioxide (22-30) mmol/L BUN (7-17) mg/dL Creatinine (0.52-1.04) mg/dL POC Glucose (mg/dL) 111 H (75-99) mg/dL Assessment and Plan Assessment: Acute Covid 19 viral infection Acute hypoxic respiratory failure secondary to above Suspected COVID 19 infection due to subjective fevers, shortness of breath and dry cough for the past 2 weeks Acute COPD exacerbation Hypertensive urgency on admission Questionable atrial fibrillation with rapid ventricular rate. Seem by cardiology and thought to be sinus tachycardia upon review of EKG. Sebaceous cyst on the back. Status post I&D. Rule out pulmonary embolism History of GERD Hypertension Hyperlipidemia Osteoarthritis Hypothyroidism History of CVA/TIA in 2013 Previous history of smoking Plan: Patient will be continued on DuoNeb's and Symbicort. Oxygen THERAPY NEEDED. Gentle hydration. PATIENT WAS GIVEN gentle hydration. Continue with telemetry monitoring. Cardizem has been discontinued. Patient was started on the verapamil.. D-dimer was ordered to rule out pulmonary embolism which is elevated. CT angiogram is negative for PE. Continue with blood pressure medications and follow closely. Patient is currently on contact and Doppler precautions due to cOVID 19 viral infection. Anticipate discharge in the next 24 hours with more clinical improvement. Titrate oxygen to room air. Time with Patient: Greater than 30
[2020-01-18] MEDS: ALBUTEROL INHALER 60 PUFF/8 GM INHALER (BULK) INHALATION SCH ×4 (01:13→11:50)
[2020-01-18] MEDS: LEVOTHYROXINE 88 MCG TAB PO SCH (05:07)
[2020-01-18 05:47] LABS: Glucose,Whole Blood 92 mg/dL (75-99)
[2020-01-18] MEDS: INSULIN ASPART (NovoLOG) 100 UNIT/ML VIAL SQ SCH ×2 (06:05→11:45)
[2020-01-18 06:39] LABS: Calcium 8.8 mg/dL (8.4-10.2); Potassium 4.9 mmol/L (3.5-5.1)
[2020-01-18] MEDS: TIOTROPIUM 18 MCG/PUFF INHALER INHALATION SCH (08:38)
[2020-01-18] MEDS: SYMBICORT 80-4.5 MCG INHALER INHALATION SCH (08:38)
[2020-01-18] MEDS: AMOXIC-POT CLAV 875-125MG 1 EACH TAB PO SCH (08:54)
[2020-01-18] MEDS: ASPIRIN 81 MG PO SCH (08:55)
[2020-01-18] MEDS: MULTIVITAMINS, THERA 1 EACH TAB PO SCH (08:55)
[2020-01-18] MEDS: HYDROXYCHLOROQUINE SULFATE 200 MG TAB PO SCH (08:55)
[2020-01-18] MEDS: VERAPAMIL 40 MG TAB PO SCH (08:55)
[2020-01-18] MEDS: LISINOPRIL 20 MG TAB PO SCH (08:55)
[2020-01-18] MEDS: DOCUSATE 100 MG CAP PO SCH (09:02)
[2020-01-18 11:09] VITALS: BP 104/57; PULSE 79; TEMP 98.2
[2020-01-18 11:41] LABS: Glucose,Whole Blood 105 mg/dL (75-99)
--- NOTE | 2020-01-18 12:04 | P.DS ---
Providers Date of admission: 01/12/20 10:28 Attending physician: Paty Sears Consults: 01/12/20 12:24 Consult Physician Routine Consulting Provider: Tiffani Lu Consult Reason/Comments: afib rvr Do you want consulting provider notified?: Yes 01/12/20 13:59 Consult Physician Urgent Consulting Provider: Lavelle Giraldo Consult Reason/Comments: sob Do you want consulting provider notified?: Yes 01/12/20 15:42 Consult Physician Routine Consulting Provider: Andreas Hurtado Consult Reason/Comments: I&D Do you want consulting provider notified?: Yes Primary care physician: [facility] Course: 79-year-old female with known history of COPD, previous history of smoking, history of TIA/CVA, hypertension, hyperlipidemia, osteoarthritis and anxiety and questionable history of atrial fibrillation currently not on any anticoagulation at home came to ER with the complaints of shortness of breath which is getting worse since yesterday. Patient says that she's been having cough for the past 2 weeks and subjective fevers at home. Patient also did not take her medications today morning. Her blood pressure was elevated with SBP greater than 220 on admission. Patient was also tachycardic and tachypneic and also hypoxic on admission. Patient was febrile in the hospital. Denied any nausea vomiting or diarrhea or abdominal pain. No complaints of chest pain. Patient does have headache but no dizziness or lightheadedness. Denied any sick contacts or recent travel. EKG showed atrial fibrillation with rapid ventricular rate on admission and was started on Cardizem drip and heparin drip. Chest x-ray showed COPD with chronic appearing changes. Laboratory data showed pelvis 11.0, hemoglobin 14.1, platelets 317, sodium 140, potassium 4.8, BUN 21 and creatinine 0.9 and troponin 0.012 Patient was seen by cardiology. After reviewing EKG, patient was found to be in sinus tachycardia on admission. D-dimer was ordered. 01/13/2020 Patient is currently lying in the bed comfortably. Shortness of breath is improving. CT angiogram is negative for pulmonary embolism. Currently being continued on IV steroids, DuoNeb's and Symbicort. Antibiotics in the form of Unasyn and azithromycin. Covid 19 testing is pending. Denied any significant cough today. Patient has been afebrile. No complaints of chest pain. No nausea vomiting or abdominal pain. No diarrhea no. Tolerating oral diet. Cultures have been negative so far. Patient is status post I&D of infected sebaceous cyst on the back. 01/14/2020 Patient is awake and alert oriented 3. Breathing status is improving. The sleep with ambulation. Patient is positive for Covid 19. Denied any significant cough. Patient is afebrile. Continued on breathing treatments. Was started on hydroxychloroquine. Antibiotics changed to Augmentin. Steroids have been discontinued. No complex of chest pain. No nausea vomiting or abdominal pain or diarrhea. 01/15/2020 Patient is currently lying in the bed comfortably. Still having exertional dyspnea and not feeling very well. Bilateral diminished air entry. No wheezing or rhonchi. Patient has been afebrile overnight. Currently being converted on hydroxychloroquine and Augmentin. Cultures have been negative so far. WBC 17.4 and hemoglobin 10.8 Denied any complaints of nausea vomiting. Does have some headache. No abdominal pain or diarrhea. 01/16/2020 Patient is currently lying in the bed. Denied any complains of chest pain or worsening shortness of breath. Saturating around 91-92% on room air at rest area did still feels dyspneic with ambulation and also generalized weakness and tiredness. Currently being continued on hydroxychloroquine and antibiotics in the form of Augmentin. Continue with breathing treatments. Patient has been afebrile. Anticipate discharge next 24 hours with morphine improvement. Encourage ambulation. Tolerating oral diet. 01/17/2020 Patient is awake alert and lingin the bed comfortably. Patient says that she is feeling very weak and nauseated this morning and about to fall while she was going to the bathroom. No complaints of chest pain or worsening shortness of breath. Currently on room air in mid 90s. Cultures have been negative. BUN 28 and creatinine 1.12. Otherwise patient is being continued on antibiotics in the form of Augmentin and also on Plaquenil. Continued on breathing treatments. Anticipate discharge tomorrow. 01/18/2020 Patient is clinically doing well he medically stable will be discharged today. PHYSICAL EXAMINATION: Patient is lying in the bed comfortably, no acute distress, awake alert and oriented.. HEENT: Normocephalic. Neck is supple. Pupils reactive. Nostrils clear. Oral cavity is moist. Ears reveal no drainage. Neck reveals no JVD, carotid bruits, or thyromegaly. CHEST EXAMINATION: Trachea is central. Symmetrical expansion. Minimal expiratory wheezing and improved air entry. CARDIAC: Normal S1, S2 with no gallops. No murmurs ABDOMEN: Soft. Bowel sounds normal. No organomegaly. No abdominal bruits. Extremities: reveal no edema. No clubbing or cyanosis Neurologically awake, alert, oriented x3 with well-coordinated movements. No focal deficits noted Skin: No rash or skin lesions. Psychiatric: Coperative. Nonsuicidal Musculoskeletal: No joint swelling or deformity. Normal range of motion. Note: Because of COVID 19 isolation, some of the history and physical exam findings or indirect and obtained from nursing staff, and other physician examinations to avoid unnecessary contact with the patient. Assessment and Plan Assessment: Acute Covid 19 viral infection Acute hypoxic respiratory failure secondary to above Suspected COVID 19 infection due to subjective fevers, shortness of breath and dry cough for the past 2 weeks Acute COPD exacerbation Hypertensive urgency on admission Questionable atrial fibrillation with rapid ventricular rate. Seem by cardiology and thought to be sinus tachycardia upon review of EKG. Sebaceous cyst on the back. Status post I&D. Rule out pulmonary embolism History of GERD Hypertension Hyperlipidemia Osteoarthritis Hypothyroidism History of CVA/TIA in 2014 Patient Condition at Discharge: Fair Plan - Discharge Summary Discharge Rx Participant: No New Discharge Prescriptions: New Verapamil [Isoptin] 40 mg PO TID #90 tab Budesonide/Formoterol Fumarate [Symbicort 80-4.5 Mcg Inhaler] 2 puff INHALATION BID #1 inhaler Albuterol Inhaler (Bulk) [Ventolin Hfa Inhaler (Bulk)] 2 puff INHALATION RT- Q4H #1 inhaler Lisinopril [Prinivil] 10 mg PO DAILY #30 tab Continue Aspirin [Adult Low Dose Aspirin EC] 81 mg PO DAILY ALPRAZolam [Xanax] 0.5 mg PO TID PRN PRN Reason: Anxiety Rosuvastatin [Crestor] 20 mg PO HS Levothyroxine Sodium [Synthroid] 88 mcg PO DAILY Ipratropium-Albuterol Nebulize [Duoneb 0.5 mg-3 mg/3 ml Soln] 3 ml INHALATION RT-QID PRN PRN Reason: sob Multivitamins, Thera [Multivitamin (formulary)] 1 tab PO DAILY Albuterol Sulfate [Ventolin HFA] 2 puff INHALATION RT-Q4H PRN PRN Reason: Shortness Of Breath Dicyclomine [Bentyl] 10 mg PO TID PRN PRN Reason: STOMACH CRAMPING Cyclobenzaprine [Flexeril] 5 - 10 mg PO BID PRN PRN Reason: Muscle Spasm Biotin 5,000 mcg PO DAILY Citracal/Vit D 200-250 1 tab PO DAILY Discontinued Ramipril 10 mg PO DAILY Discharge Medication List ALPRAZolam [Xanax] 0.5 mg PO TID PRN 10/19/16 [History] Aspirin [Adult Low Dose Aspirin EC] 81 mg PO DAILY 10/19/16 [History] Ipratropium-Albuterol Nebulize [Duoneb 0.5 mg-3 mg/3 ml Soln] 3 ml INHALATION RT-QID PRN 10/19/16 [History] Levothyroxine Sodium [Synthroid] 88 mcg PO DAILY 10/19/16 [History] Multivitamins, Thera [Multivitamin (formulary)] 1 tab PO DAILY 10/19/16 [History] Rosuvastatin [Crestor] 20 mg PO HS 10/19/16 [History] Albuterol Sulfate [Ventolin HFA] 2 puff INHALATION RT-Q4H PRN 01/12/20 [History] Biotin 5,000 mcg PO DAILY 01/12/20 [History] Citracal/Vit D 200-250 1 tab PO DAILY 01/12/20 [History] Cyclobenzaprine [Flexeril] 5 - 10 mg PO BID PRN 01/12/20 [History] Dicyclomine [Bentyl] 10 mg PO TID PRN 01/12/20 [History] Albuterol Inhaler (Bulk) [Ventolin Hfa Inhaler (Bulk)] 2 puff INHALATION RT-Q4H #1 inhaler 01/16/20 [Rx] Budesonide/Formoterol Fumarate [Symbicort 80-4.5 Mcg Inhaler] 2 puff INHALATION BID #1 inhaler 01/16/20 [Rx] Verapamil [Isoptin] 40 mg PO TID #90 tab 01/16/20 [Rx] Lisinopril [Prinivil] 10 mg PO DAILY #30 tab 01/18/20 [Rx] Follow up Appointment(s)/Referral(s): Tiffani Lu MD [STAFF PHYSICIAN] - 02/04/20 2:00 pm () Cari Pisano DO [Primary Care Provider] - 01/19/20 10:00 am (Video appointment for follow up. If this time does not work, please call back. This can easily be changed. ) [facility], [NON-STAFF] - Lavelle Giraldo MD [STAFF PHYSICIAN] - 02/12/20 9:15 am (Arrival time 9:15 - office is bringing you in early for new patient paperwork at this time. Apppointment for 9:45 AM.) Patient Instructions/Handouts: Chronic Lung Disease and Infection Prevention (DC) Activity/Diet/Wound Care/Special Instructions: covid-19 precautions paper on discharge Discharge Disposition: HOME SELF-CARE
--- NOTE | 2020-01-18 12:51 | P.PN ---
Subjective Progress Note Date: 01/18/20 Principal diagnosis: Acute hypoxic rest or a failure related to acute exacerbation of COPD, with the possibility of Covid 19 infection, patient has been tested and the results are pending at this time. Reports some fevers and cough, shortness of breath at home 79-year-old white female patient of Dr. Smith, with past medical history of COPD, hypertension, chronic atrial fibrillation, previous history of CVA/TIA, hypothyroidism, current every day smoker, smokes half a pack a day for the past 40 years, who presented to the emergency department per EMS on 01/12/2020, for evaluation of increasing shortness of breath that started yesterday. patient did have fevers at home. She states she has been at home under stable home order since December 21. She does have family members that tested positive for Covid 19 however they have been and self-isolation and have not had any contact with the patient says before December 21. She states she called her [id number] who did test positive for Covid 19 this morning to transport her to the hospital however upon further thought she changed her mind and called the ambulance. Patient had not taken her usual medications this morning, her blood pressure on arrival was 220/120, she was in A. fib RVR with a rate of 1:30 BPM, she denies any fevers, denies any nausea vomiting, denies any diaphoresis, no chest pain. Patient was bronchospastic, dyspneic, with audible wheezing. EKG showed A. fib RVR, with nonspecific ST-T wave configuration. Chest x-ray showed COPD, chronic appearing changes, and no definite acute process. Lab work has been reviewed showing white blood cell count 11.0, 11 of 14.1, coagulation profile was within normal limits, d-dimer was not checked yet, a lecture lites are within normal limits, BUN is 21 creatinine 0.92, lactic acid is 0.8, LFTs were within normal limits, troponin was less than 0.012, proBNP was within normal limits at 202, influenza screen was negative. COVID 19 testing has been ordered in in progress, pro- calcitonin this pending, d-dimer has been ordered, cardiology has evaluated the patient, determined that patient was in sinus tachycardia, nevertheless patient was started on heparin infusion for anticoagulation. On 01/13/2020 patient seen in follow-up on selective care unit, she is feeling better today, breathing easier, her pulse ox is 94%, hemodynamically patient is stable, she's been afebrile, respirations are nonlabored, no tachypnea, no dyspnea, vital signs are stable, no complaints of chest pain. No significant cough or congestion. Lung sounds are diminished to auscultation, no rhonchi or wheezing. Her Covid 19 testing still pending, Procalcitonin level was low at 0.11. Patient is on IV steroids, she is on inhalers including Spiriva, Symbicort and albuterol, a much easier today, she had a surgical evaluation for her incision and drainage on her upper back. Is on antibiotics using Unasyn and Zithromax On 01/15/2020 patient seen in follow-up on selective care unit, she is calm and comfortable, sitting up on the edge of the bed, room air pulse ox is 91%, she is afebrile, she states she still has the fatigue and the coughing, but seems to be in no acute distress, lung sounds are diminished, no rhonchi, no wheezing, no febrile episodes overnight, patient is being treated with hydroxychloroquine, and Augmentin, her wound cultures are negative thus far, anaerobic cultures are still pending, clinically stable, labs have been reviewed, showing limits oh, and trending down down to 17.4, hemoglobin of 10.8, The patient is seen today 01/16/2020 in follow-up on the selective care unit. She is currently sitting up in bed. Awake and alert in no acute distress. No worsening shortness of breath, cough or congestion. She is maintaining O2 satu rations in the 90s on room air. She's afebrile. Hemodynamically stable. Wound culture is pending. She is continued on Symbicort, Spiriva and albuterol. She was found to be CoVID 19 positive and remains on Plaquenil. Patient is seen today 01/17/2020 in follow-up on the selective care unit. She is awake and alert in no acute distress. No worsening shortness of breath, cough or congestion. Maintaining O2 saturations in the mid 90s on room air She's been afebrile. Hemodynamically stable. Blood cultures from the back revealed no growth. White count 8.6. Hemoglobin 12.5. Creatinine 1.12. Remains on Symbicort, Spiriva and albuterol. Antibiotics in the form of Augmentin. Continue and on Plaquenil. Patient was seen today 01/18/2020 and follow-up with Dr. Fairbanks. She is resting comfortably in bed, and is awake and alert in no acute distress. She denies any worsening shortness of breath or coughing. She is maintaining good oxygen saturation on room air and has been afebrile. Hemodynamically stable. Maintained on Augmentin, Plaquenil, Ventolin, Symbicort, and Spiriva inhalers Objective - Vital Signs Vital signs: Vital Signs Temp 98.2 F 01/18/20 11:05 Pulse 79 01/18/20 11:05 Resp 18 01/18/20 11:05 BP 104/57 01/18/20 11:05 Pulse Ox 93 L 01/18/20 11:05 Intake & Output 01/17/20 01/18/20 01/18/20 18:59 06:59 18:59 Intake Total 720 358 Balance 720 358 Weight 76.5 kg Intake: Oral 720 358 Other: Voiding Method Toilet Toilet # Voids 1 1 3 # Bowel Movements 1 - Constitutional Constitutional Comment(s): Appears comfortable General appearance: Present: cooperative, no acute distress - Respiratory Details: Lungs sounds diminished bilaterally. Respirations even, nonlabored. Currently on room air with oxygen saturation 93% - Cardiovascular Details: S1, S2 present. Regular rate and rhythm, sinus rhythm on telemetry. Palpable peripheral pulses bilaterally. No edema present. - Gastrointestinal Gastrointestinal Comment(s): Abdomen soft, nontender, nondistended. Active bowel sounds present 4 quadrants. Tolerating diet. - Genitourinary Genitourinary Comment(s): Continues to void - Integumentary Integumentary Comment(s): Skin is warm and dry. Large draining boil present to her upper back, cultures negative - Neurologic Neurologic: Present: CNII-XII intact - Musculoskeletal Musculoskeletal: Present: strength equal bilaterally - Psychiatric Psychiatric: Present: A&O x's 3, appropriate affect, intact judgment & insight - Allied health notes Allied health notes reviewed: nursing - Labs CBC & Chem 7: 01/17/20 06:27 01/18/20 05:25 Labs: Abnormal Lab Results - Last 24 Hours (Table) 01/17/20 01/17/20 01/18/20 Range/Units 16:44 20:50 05:25 Sodium 133 L (137-145) mmol/L BUN 29 H (7-17) mg/dL Creatinine 1.18 H (0.52-1.04) mg/dL POC Glucose (mg/dL) 104 H 111 H (75-99) mg/dL 01/18/20 Range/Units 11:40 Sodium (137-145) mmol/L BUN (7-17) mg/dL Creatinine (0.52-1.04) mg/dL POC Glucose (mg/dL) 105 H (75-99) mg/dL Assessment and Plan Assessment: #1. Acute hypoxic rest or a failure related to acute exacerbation of COPD, positive Covid 19 infection. Reports some fevers and cough, shortness of breath at home #2. A. fib with RVR on presentation, patient has been evaluated by cardiology, and it was determined the patient was in sinus tachycardia #3. Chronic obstructive pulmonary disease, stable #4. Hypertensive urgency on presentation improved. Chest x-ray did not show any definite evidence of edema #5. Previous history of CVA/TIA #6. Anxiety #7. Chronic and ongoing nicotine dependence, smoked for 40 years half a pack a day #8. Osteoarthritis #9. Hypothyroidism #10. Diverticular disease #11. Large draining boil on upper back, cultures negative Plan: The patient was seen and evaluated by Dr. Fairbanks Complete 5 days of Plaquenil Continue Augmentin Continue Symbicort, Spiriva, albuterol On room air Cleared for discharge from pulmonary standpoint I, the cosigning physician, performed a history & physical examination of the patient. Lungs sounds are clear, diminished. Maintaining good O2 saturations in the 90s on room air. I discussed the assessment and plan of care with my nurse practitioner, Mary Kate Avila. I attest to the above note as dictated by her. Time with Patient: Greater than 30
== END 2020-01-18 13:42 | disposition home or self-care (01) | DRG 177 ==
LOC: EC 08:27 → 3SCARD 10:28
PROVIDERS: ADMIT Internal Medicine; ATTEND Internal Medicine
PROC: 0HB6XZZ Excision of Back Skin, External Approach (ICD-10-PCS; principal; 2020-01-13)
PROC: 0H96XZZ Drainage of Back Skin, External Approach (ICD-10-PCS; principal; 2020-01-13)
DX: U07.1 COVID-19 (principal); J96.01 Acute respiratory failure with hypoxia; I47.1 Supraventricular tachycardia; I48.20 Chronic atrial fibrillation, unspecified; J44.1 Chronic obstructive pulmonary disease with (acute) exacerbation; J98.11 Atelectasis; E03.9 Hypothyroidism, unspecified; E78.5 Hyperlipidemia, unspecified; F17.210 Nicotine dependence, cigarettes, uncomplicated; F41.9 Anxiety disorder, unspecified; I10 Essential (primary) hypertension; I16.0 Hypertensive urgency; K57.90 Diverticulosis of intestine, part unspecified, without perforation or abscess without bleeding; L72.3 Sebaceous cyst; M15.9 Polyosteoarthritis, unspecified; Z79.51 Long term (current) use of inhaled steroids; Z79.82 Long term (current) use of aspirin; Z79.890 Hormone replacement therapy; Z79.899 Other long term (current) drug therapy; Z83.3 Family history of diabetes mellitus; Z86.73 Personal history of transient ischemic attack (TIA), and cerebral infarction without residual deficits; Z82.49 Family history of ischemic heart disease and other diseases of the circulatory system; Z98.42 Cataract extraction status, left eye; Z98.41 Cataract extraction status, right eye
CPT/HCPCS: 36415; 71045; 71275; 80048; 80053; 82550; 82728; 83605; 83615; 83735; 83880; 84145; 84484; 85025; 85379; 85610; 85730; 87070; 87075; 87205; 87502; 93005; 93306; 94640; 94760; 96361; 96365; 96367; 96376; 99291

== ENCOUNTER → 2024-01-13 | Outpatient (CLI) | payer MEDICARE, BC ==
--- NOTE | 2024-01-13 14:23 | CA ---
Transthoracic Echo Report Name: Che Moffett Age: 83 Gender: F : 1940 Exam Date: 01/13/2024 11:29 Exam Location: [facility] Ht (in): 64 Wt (lb): 164 Ordering Physician: Cari Pisano DO Attending/Referring Phys: Cari Pisano DO Drug Abuse Social Worker Sandra Harper RDCS Procedure CPT: Indications: R00.2 palpitations Cardiac Hx: Technical Quality: Good Contrast 1: Total Dose (mL): Contrast 2: Total Dose (mL): MEASUREMENTS (Male / Female) Normal Values 2D ECHO LV Diastolic Diameter PLAX 4.5 cm 4.2 - 5.9 / 3.9 - 5.3 cm LV Systolic Diameter PLAX 2.9 cm IVS Diastolic Thickness 1.3 cm 0.6 - 1.0 / 0.6 - 0.9 cm LVPW Diastolic Thickness 1.0 cm 0.6 - 1.0 / 0.6 - 0.9 cm LV Relative Wall Thickness 0.5 RV Internal Dim ED PLAX 3.3 cm LVOT Diameter 2.2 cm LA Systolic Diameter LX 4.0 cm 3.0 - 4.0 / 2.7 - 3.8 cm LV Diastolic Volume MOD BP 53.8 cm??? 67 - 155 / 56 - 104 cm??? LV Systolic Volume MOD BP 22.2 cm??? 22 - 58 / 19 - 49 cm??? LV Ejection Fraction MOD BP 58.8 % >= 55 % LV Cardiac Index MOD BP 1571.3 cm???/min???m??? LV Diastolic Volume MOD 4C 59.3 cm??? LV Systolic Volume MOD 4C 21.9 cm??? LV Ejection Fraction MOD 4C 63.1 % LV Cardiac Index MOD 4C 1855.5 cm???/min???m??? LV Diastolic Length 4C 5.7 cm LV Systolic Length 4C 5.0 cm LV Diastolic Volume MOD 2C 48.0 cm??? LV Systolic Volume MOD 2C 21.2 cm??? LV Ejection Fraction MOD 2C 55.8 % LV Cardiac Index MOD 2C 1329.0 cm???/min???m??? LV Diastolic Length 2C 6.0 cm LV Systolic Length 2C 5.5 cm LA Volume 52.2 cm??? 18 - 58 / 22 - 52 cm??? LA Volume Index 28.2 cm???/m??? 16 - 28 cm???/m??? DOPPLER AV Peak Velocity 232.5 cm/s AV Peak Gradient 21.6 mmHg AV Mean Velocity 138.0 cm/s AV Mean Gradient 9.4 mmHg AV Velocity Time Integral 49.7 cm LVOT Peak Velocity 135.4 cm/s LVOT Peak Gradient 7.3 mmHg LVOT Velocity Time Integral 30.5 cm LVOT Stroke Volume 114.0 cm??? LVOT Stroke Volume Index 63.4 ml/m??? LVOT Cardiac Index 5660.1 cm???/min???m??? AV Area Cont Eq vti 2.3 cm??? AV Area Cont Eq pk 2.2 cm??? MV Peak Velocity 156.1 cm/s MV Peak Gradient 9.7 mmHg MV Mean Velocity 78.2 cm/s MV Mean Gradient 3.1 mmHg MV Velocity Time Integral 56.6 cm MV Area PHT 3.4 cm??? Mitral E Point Velocity 131.6 cm/s Mitral A Point Velocity 111.7 cm/s Mitral E to A Ratio 1.2 MV Deceleration Time 223.5 ms TR Peak Velocity 258.5 cm/s TR Peak Gradient 26.7 mmHg Right Ventricular Systolic Press 31.7 mmHg FINDINGS Left Ventricle Left ventricular ejection fraction is estimated at 60-65 %. Left ventricular cavity size normal. Moderately increased septal wall thickness. No obvious regional wall motion abnormalities. Right Ventricle Mild right ventricular dilatation. Right ventricular systolic pressure within normal limits. Right Atrium Normal right atrial size. Left Atrium Mildly increased left atrial diameter. Mitral Valve Moderate thickening/calcification of the anterior mitral valve leaflet. Moderate thickening/calcification of the posterior mitral valve leaflet. Mild mitral regurgitation. Mild mitral stenosis. Aortic Valve Trileaflet aortic valve. Aortic valve sclerosis. Mild aortic stenosis with a peak gradient of 22 mmHg and a mean gradient of 9 mmHg. Tricuspid Valve Structurally normal tricuspid valve. Mild tricuspid regurgitation. Pulmonic Valve Mild pulmonic regurgitation. Pericardium No pericardial effusion. Aorta Normal size aortic root and proximal ascending aorta. CONCLUSIONS Left ventricular ejection fraction 6065% Moderately increased left ventricular wall thickness Mild right ventricular dilation Mildly increased left atrial diameter Moderate mitral annular calcification Mild mitral regurgitation Mild mitral stenosis Mild aortic stenosis with a mean gradient of 9 mmHg Mild tricuspid regurgitation RVSP 31 Previewed by: Dr. Moisés Álvarez DO (Electronically Signed) Final Date: 13 January 2024 14:22
== END | disposition home or self-care (01) ==
LOC: RADECHMAIN 11:17
PROVIDERS: ATTEND Family Medicine
DX: I36.1 Nonrheumatic tricuspid (valve) insufficiency (principal); I35.0 Nonrheumatic aortic (valve) stenosis; I34.2 Nonrheumatic mitral (valve) stenosis; I34.81 Nonrheumatic mitral (valve) annulus calcification; I34.0 Nonrheumatic mitral (valve) insufficiency; I51.7 Cardiomegaly; R01.1 Cardiac murmur, unspecified; R00.2 Palpitations
CPT/HCPCS: 93306